=== PATIENT | male | born 1950 | race Caucasian/White ===

== ENCOUNTER 2017-02-07 13:21 | Outpatient (CLI) | payer MEDICARE, BC ==
[2017-02-07] MEDS ORDERED: Sodium Chloride 0.9% 15 ML NEB ONE (18:59)
== END 2017-02-07 13:22 | disposition home or self-care (01) ==
LOC: WCC 13:21
PROVIDERS: ATTEND Family Medicine
DX: T81.89XD Other complications of procedures, not elsewhere classified, subsequent encounter (principal); Z89.411 Acquired absence of right great toe
CPT/HCPCS: 97605; A4218

== ENCOUNTER 2017-02-11 12:45 | Outpatient (CLI) | payer MEDICARE, BC ==
--- NOTE | 2017-02-11 13:35 | PRG ---
DATE OF SERVICE: 02/11/2017 WOUND CARE EVALUATION Mr. Jang is visiting Wound Care. His right great toe amputated through the proximal phalanx, wou nd is inspected. There is some granulation, but not as much as I would like. He did have a preoper ative angiogram with stents placed. His circulation has been optimized. At this point, I would con tinue wound VAC care. He has appointment to see me in the office tomorrow that we can cancel. I w ill see him in the Wound Care in about 10 days. We will call me to view his wound. If the wound is equivocal as far as predicting whether it will heal or not, we will have to observe it.
[2017-02-11] MEDS ORDERED: Sodium Chloride 0.9% 15 ML NEB ONE (18:46)
== END 2017-02-11 12:46 | disposition home or self-care (01) ==
LOC: WCC 12:45
PROVIDERS: ATTEND Family Medicine
DX: T81.89XD Other complications of procedures, not elsewhere classified, subsequent encounter (principal); Z89.411 Acquired absence of right great toe
CPT/HCPCS: 97605; A4218

== ENCOUNTER 2017-02-14 12:54 | Outpatient (CLI) | payer MEDICARE, BC ==
[~2017-02-14 12:54] MED LIST: Sodium Chloride 0.9% 15 ML NEB ONE
== END 2017-02-14 12:55 | disposition home or self-care (01) ==
LOC: WCC 12:54
PROVIDERS: ATTEND Family Medicine
DX: T81.89XD Other complications of procedures, not elsewhere classified, subsequent encounter (principal)
CPT/HCPCS: 97606; A4218

== ENCOUNTER 2017-02-18 12:54 | Outpatient (CLI) | payer MEDICARE, BC ==
--- NOTE | 2017-02-18 14:38 | PRG ---
DATE OF SERVICE: 02/18/2017 HISTORY: Mr. Chencho Jang is a very pleasant 66-year-old gentleman accompanied by his rikki dugan presents to the Wound Center for evaluation of a wound of the right foot subsequent to amputation of the right great toe through the proximal phalanx on 01/27/[address] Romulo Brown. [facility], the wound was left open for healing by secondary intention. Also at the time of surgery, the pat ient underwent wound VAC placement for the wound of the right great toe. Upon discharge from [facility], the patient was referred to the Wound Center for assistance with dressi ng changes of the wound VAC. The patient was discharged to home on Augmentin 500 mg p.o. b.i.d. x7 days. PHYSICAL EXAMINATION: VITAL SIGNS: Temperature 98.3, pulse 72, respirations 18, blood pressure 162/81, Accu-Chek 149. EXTREMITIES: A wound of the right great toe is present which measures approximately 2.8 x 1.4 cm. The dimensions of the wound at the time of the patient's visit on 02/04/2017 were approximately 2.9 x 3.4 cm. Nonviable tissue present within the wound margins was debrided with an excisional full-th ickness debridement with the use of a curette. No purulent drainage is associated with the wound. The wound is granulating. No cellulitis of the right great toe is appreciated. No maceration of th e skin of the periwound is noted. A dorsalis pedis pulse is palpable on the right. No significant edema of the right foot or right great toe is present on exam today. ASSESSMENT AND PLAN: 1. Wound of right great toe subsequent to amputation of the right great toe through the proximal ph alanx on 01/27/[address] Romulo Brown. The wound was left open for healing by secondary intenti on at the time of surgery. Also at the time of surgery, the patient underwent wound VAC placement. Negative pressure therapy will be continued with dressing changes of the wound VAC 2 times per week here in the Wound Center. The patient will be seen by Dr. Brown in 1 week. I will see Mr. Rosette nunez again in two weeks. 2. Diabetes mellitus. The patient's Accu-Chek in clinic today is 149. The patient has been remind ed that for optimal wound healing, his blood glucoses should remain below 150. 3. Hypertension. 4. Obstructive sleep apnea. 5. History of bladder carcinoma. 6. Peripheral vascular disease.
[2017-02-18] MEDS ORDERED: Sodium Chloride 0.9% 15 ML NEB ONE (17:00)
== END 2017-02-18 12:55 | disposition home or self-care (01) ==
LOC: WCC 12:54
PROVIDERS: ATTEND Family Medicine
DX: T81.89XD Other complications of procedures, not elsewhere classified, subsequent encounter (principal); E11.9 Type 2 diabetes mellitus without complications; G47.33 Obstructive sleep apnea (adult) (pediatric); I73.9 Peripheral vascular disease, unspecified; I10 Essential (primary) hypertension; Z85.51 Personal history of malignant neoplasm of bladder
CPT/HCPCS: 11042; 97139; G0463; 99204; A4218

== ENCOUNTER 2017-02-21 13:04 | Outpatient (CLI) | payer MEDICARE, BC ==
[2017-02-21] MEDS ORDERED: Sodium Chloride 0.9% 15 ML NEB ONE (16:21)
== END 2017-02-21 13:05 | disposition home or self-care (01) ==
LOC: WCC 13:04
PROVIDERS: ATTEND Family Medicine
DX: T81.89XD Other complications of procedures, not elsewhere classified, subsequent encounter (principal); Z89.411 Acquired absence of right great toe
CPT/HCPCS: 97605; A4218

== ENCOUNTER 2017-02-25 12:44 | Outpatient (CLI) | payer MEDICARE, BC ==
--- NOTE | 2017-02-25 13:54 | PRG ---
DATE OF SERVICE: 02/25/2017 Mr. Jang is seen in Wound Care along with the wound care team, outpatient [facility]. His ri ght first toe amputated mid toe healing secondarily with a wound VAC. He is doing well. They are u sing Promogran and a wound VAC. I would continue the wound VAC until granulation fills this in. It is approximately 2 cm deep, but overall is healing, looks healthy. There is some redness about the wound probably secondary to wound VAC adhesive. No evidence of infection. Continue wound care, I will look at the wound again in a week and a half to 2 weeks.
[2017-02-25] MEDS ORDERED: Sodium Chloride 0.9% 15 ML NEB ONE (14:49)
== END 2017-02-25 12:45 | disposition home or self-care (01) ==
LOC: WCC 12:44
PROVIDERS: ATTEND Family Medicine
DX: T81.89XD Other complications of procedures, not elsewhere classified, subsequent encounter (principal); Z89.411 Acquired absence of right great toe
CPT/HCPCS: 97605; A4218

== ENCOUNTER 2017-02-28 13:12 | Outpatient (CLI) | payer MEDICARE, BC | END 2017-02-28 13:13 | disposition home or self-care (01) | LOC: WCC 13:12 | PROVIDERS: ATTEND Family Medicine | DX: T81.89XD Other complications of procedures, not elsewhere classified, subsequent encounter (principal); Z89.411 Acquired absence of right great toe | CPT/HCPCS: 97605 ==

== ENCOUNTER 2017-03-04 13:16 | Outpatient (CLI) | payer MEDICARE, BC ==
--- NOTE | 2017-03-05 09:12 | PRG ---
DATE OF SERVICE: 03/04/2017 HISTORY: Mr. Chencho Jang is a very pleasant 66-year-old gentleman, accompanied by his , who presents to the Wound Center for evaluation of a wound of the right foot subsequent to amputati on of the right great toe through the proximal phalanx on 01/27/[address] Romulo Brown. At [facility], the wound was left open for healing by secondary intention. Also, at the time of surgery, the patient underwent wound VAC placement for the wound of the right great toe. Upon discharge from [facility], the patient was referred to the Wound Center for assistance with cory ssing changes of the wound VAC. The patient was discharged to home on Augmentin 500 mg p.o. b.i.d. x7 days. PHYSICAL EXAMINATION: VITAL SIGNS: Temperature 98.1, pulse 69, respirations 18, blood pressure 147/78. Accu-Chek 179. EXTREMITIES: A wound of the right great toe is present, which measures approximately 1.3 x 0.4 cm. The dimensions of the wound, at the time of the patient's visit on 02/18/2017, were approximately 2 .8 x 1.4 cm. The depth of the wound today is approximately 1 cm. The wound is granulating. Nonvia ble tissue present within the wound margins was debrided with an excisional full-thickness debrideme nt. No purulent drainage is associated with the wound. No cellulitis of the right great toe is mile reciated. No maceration of the skin of the periwound is noted. A dorsalis pedis pulse is palpable on the right. No significant edema of the right foot or right great toe is present on exam today. ASSESSMENT AND PLAN: 1. Wound of right great toe subsequent to amputation of the right great toe through the proximal ph alanx on 01/27/[address] Romulo Brown. The wound was left open for healing by secondary intenti on at the time of surgery. Also, at the time of surgery, the patient underwent wound VAC placement. Negative pressure therapy will be continued with dressing changes of the wound VAC 2 times per adwoa rodas in the Wound Center. The patient will be seen by Dr. Brown in 1 week. I will see Mr. Aftab shaw again in two weeks. 2. Diabetes mellitus. The patient's Accu-Chek in clinic today is 179. The patient has been remind ed that for optimal wound healing, his blood glucoses should remain below 150. 3. Hypertension. 4. Obstructive sleep apnea. 5. History of bladder carcinoma. 6. Peripheral vascular disease.
== END 2017-03-04 13:17 | disposition home or self-care (01) ==
LOC: WCC 13:16
PROVIDERS: ATTEND Family Medicine
DX: T81.89XD Other complications of procedures, not elsewhere classified, subsequent encounter (principal); E11.9 Type 2 diabetes mellitus without complications; I10 Essential (primary) hypertension; G47.33 Obstructive sleep apnea (adult) (pediatric); I73.9 Peripheral vascular disease, unspecified; Z85.51 Personal history of malignant neoplasm of bladder; Z89.411 Acquired absence of right great toe
CPT/HCPCS: 11042

== ENCOUNTER 2017-03-07 11:23 | Outpatient (CLI) | payer MEDICARE, BC ==
[2017-03-07] MEDS ORDERED: Sodium Chloride 0.9% 15 ML NEB ONE (16:55)
== END 2017-03-07 11:24 | disposition home or self-care (01) ==
LOC: WCC 11:23
PROVIDERS: ATTEND Family Medicine
DX: T81.89XD Other complications of procedures, not elsewhere classified, subsequent encounter (principal)
CPT/HCPCS: 97605; A4218

== ENCOUNTER 2017-03-11 11:30 | Outpatient (CLI) | payer MEDICARE, BC | END 2017-03-11 11:31 | disposition home or self-care (01) | LOC: WCC 11:30 | PROVIDERS: ATTEND Family Medicine | DX: T87.89 Other complications of amputation stump (principal); Z89.411 Acquired absence of right great toe | CPT/HCPCS: 97606 ==

== ENCOUNTER 2017-03-14 13:15 | Outpatient (CLI) | payer MEDICARE, BC ==
--- NOTE | 2017-03-14 14:49 | PRG ---
DATE OF SERVICE: 03/14/2017 HISTORY: Mr. Chencho Jang is a very pleasant 66-year-old gentleman accompanied by his who presents to the Wound Center for evaluation of a wound of the right foot subsequent to amputati on of the right great toe through the proximal phalanx on 01/27/[address] Romulo Brown. At [facility], the wound was left open for healing by secondary intention. Also at the time of surgery, the p faviola underwent wound VAC placement for the wound of the right great toe. Upon discharge from [facility], the patient was referred to the Wound Center for assistance with dres sing changes of the wound VAC. The patient was discharged home on Augmentin 500 mg p.o. b.i.d. x7 d ays. PHYSICAL EXAMINATION: VITAL SIGNS: Temperature 97.6, pulse 69, respirations 19, and blood pressure 121/71. Accu-Chek 181 . EXTREMITIES: A wound of the right great toe is present which measures approximately 1.6 x 0.4 cm. The dimensions of the wound at the time of the patient's visit on 03/04/2017 were approximately 1.3 x 0.4 cm. The wound is granulating. Nonviable tissue present within the wound margins was debrided with an excisional full-thickness debridement with the use of a curette. No purulent drainage is a ssociated with the wound. No cellulitis of the right great toe is appreciated. No maceration of th e skin of the periwound is noted. A dorsalis pedis pulse is palpable on the right. No significant edema of the right foot or right great toe is present on exam today. ASSESSMENT AND PLAN: 1. Wound of right great toe subsequent to amputation of the right great toe through the proximal ph alanx on 01/27/[address] Romulo Brown. The wound was left open for healing by secondary intenti on at the time of surgery. Also at the time of surgery, the patient underwent wound VAC placement. The patient has been receiving dressing changes of the wound VAC 2 times per week here in the Wound Center. Negative pressure therapy will be discontinued today. Dressing changes of Aquacel AG pack ing strips, 4 x 4s and Kerlix will be initiated today. These dressing changes are to be performed o n a daily basis after cleansing and irrigation. The patient will be seen by Dr. Brown in 1 week. I will see Mr. Jang again in two weeks. 2. Diabetes mellitus. The patient's Accu-Chek in clinic today is 181. The patient has been remind ed that for optimal wound healing, his blood glucoses should remain below 150. 3. Hypertension. 4. Obstructive sleep apnea. 5. History of bladder carcinoma. 6. Peripheral vascular disease.
== END 2017-03-14 13:16 | disposition home or self-care (01) ==
LOC: WCC 13:15
PROVIDERS: ATTEND Family Medicine
DX: T81.89XD Other complications of procedures, not elsewhere classified, subsequent encounter (principal); E11.9 Type 2 diabetes mellitus without complications; G47.33 Obstructive sleep apnea (adult) (pediatric); I73.9 Peripheral vascular disease, unspecified; I10 Essential (primary) hypertension; Z85.51 Personal history of malignant neoplasm of bladder
CPT/HCPCS: 11042

== ENCOUNTER 2017-03-21 13:18 | Outpatient (CLI) | payer MEDICARE, BC ==
[2017-03-21] MEDS ORDERED: Sodium Chloride 0.9% 15 ML NEB ONE (17:55)
[2017-03-21] MEDS ORDERED: Lidocaine 2% Jelly 5 ML TUBE ONE (17:55)
--- NOTE | 2017-03-21 18:23 | PRG ---
DATE OF SERVICE: 03/21/2017 HISTORY: Mr. Chencho Jang is a very pleasant 66-year-old gentleman, accompanied by his , who presents to the Wound Center for evaluation of a wound of the right foot subsequent to amputation of the right great toe through the proximal phalanx on 01/27/[address] Romulo Brown. At surgery, the wound was left open for healing by secondary intention. Also at the time of surgery, the patient underwent wound VAC placement for the wound of the right great toe. Upon discharge from [facility], the patient was referred to the Wound Center for assistance with dressing changes of the wound VAC. The patient was discharged to home on Augmentin 500 mg p.o. b.i.d. x7 days. PHYSICAL EXAMINATION: VITAL SIGNS: Temperature 97.9, pulse 69, respirations 19, blood pressure 134/ 79. Accu-Chek 153. EXTREMITIES: A wound of the right great toe is present which measures approximately 1.0 x 0.2 cm. The dimensions of the wound at the time of the patient's visit on 03/14/2017 were approximately 1.6 x 0.4 cm. The wound is granulating. Nonviable tissue present within the wound margins was debrided with an excisional full-thickness debridement with the use of a curet. No purulent drainage is associated with the wound. No cellulitis of the right great toe is appreciated. No maceration of the skin of the periwound is noted. Edema of the right great toe is present on exam today. ASSESSMENT AND PLAN: 1. Wound of right great toe subsequent to amputation of the right great toe through the proximal phalanx on 01/27/[address] Romulo Brown. The wound was left open for healing by secondary intention at the time of surgery. Also at the time of surgery, the patient underwent wound VAC placement. The patient has completed a course of negative pressure therapy. Dressing changes of Aquacel AG packing strips, 4x4s, and Kerlix will be continued on a daily basis or alternatively three times per week after cleansing and irrigation with the assistance of the patient's . The patient will be seen by Dr. Brown in 1 week. I will see Mr. Jang again in 2 weeks. 2. Diabetes mellitus. The patient's Accu-Chek in clinic today is 153. The patient has been reminded that for optimal wound healing, his blood glucoses should remain below 150. 3. Hypertension. 4. Obstructive sleep apnea. 5. History of bladder carcinoma. 6. Peripheral vascular disease. MTDD
== END 2017-03-21 13:19 | disposition home or self-care (01) ==
LOC: WCC 13:18
PROVIDERS: ATTEND Family Medicine
DX: T81.89XD Other complications of procedures, not elsewhere classified, subsequent encounter (principal); Z89.411 Acquired absence of right great toe; E11.9 Type 2 diabetes mellitus without complications; I10 Essential (primary) hypertension; G47.33 Obstructive sleep apnea (adult) (pediatric); I73.9 Peripheral vascular disease, unspecified
CPT/HCPCS: 11042; A4218

== ENCOUNTER 2017-04-03 13:17 | Outpatient (CLI) | payer MEDICARE, BC ==
[~2017-04-03 13:17] MED LIST changes: +Lidocaine 2% Jelly 5 ML TUBE ONE
--- NOTE | 2017-04-03 14:59 | PRG ---
DATE OF SERVICE: 04/03/2017 HISTORY: Mr. Chencho Jang is a very pleasant 66-year-old gentleman accompanied by his , who presents to the Wound Center for evaluation of a wound of the right foot subsequent to amputatio n of the right great toe through the proximal phalanx on 01/27/[address] Romulo Brown. [facility], the wound was left open for healing by secondary intention. Also at the time of surgery, the shaan ent underwent wound VAC placement for the wound of the right great toe. Upon discharge from [facility], the patient was referred to the Wound Center for assistance with dressing changes of the wound VAC. The patient was discharged to home on Augmentin 500 mg p.o. b.i.d. x7 days . PHYSICAL EXAMINATION: VITAL SIGNS: Temperature 98.3, pulse 75, respirations 18, blood pressure 136/78. Accu-Chek 156. EXTREMITIES: A wound of the right great toe is present, which measures approximately 1.2 x 0.3 cm. The dimensions of the wound at the time of the patient's visit on 03/21/2017 were approximately 1.0 x 0.2 cm. The wound is granulating. Nonviable tissue present within the wound margins was debrided w ith an excisional full-thickness debridement with the use of a curette. No purulent drainage is asso ciated with the wound. No cellulitis of the right great toe is appreciated. No maceration of the sk in of the periwound is noted. Less edema of the right great toe is present on exam today than at the time of the patient's last visit. ASSESSMENT AND PLAN: 1. Wound of right great toe subsequent to amputation of the right great toe through the proximal pha lanx on 01/27/[address] Romulo Brown. The wound was left open for healing by secondary intention at the time of surgery. Also at the time of surgery, the patient underwent wound VAC placement. Th e patient has completed a course of negative pressure therapy. Dressing changes of Aquacel AG packin g strips and gauze or bordered gauze will be continued on a daily basis or alternatively 3 times per week after cleansing and irrigation with the assistance of the patient's . I will see Mr. Rosette nunez again in 2 weeks. 2. Diabetes mellitus. The patient's Accu-Chek in clinic today is 156. The patient has been reminde d that for optimal wound healing, his blood glucoses should remain below 150. 3. Hypertension. 4. Obstructive sleep apnea. 5. History of bladder carcinoma. 6. Peripheral vascular disease.
== END 2017-04-03 13:18 | disposition home or self-care (01) ==
LOC: WCC 13:17
PROVIDERS: ATTEND Family Medicine
DX: T81.89XD Other complications of procedures, not elsewhere classified, subsequent encounter (principal); E11.9 Type 2 diabetes mellitus without complications; I10 Essential (primary) hypertension; G47.33 Obstructive sleep apnea (adult) (pediatric); I73.9 Peripheral vascular disease, unspecified; Z89.411 Acquired absence of right great toe
CPT/HCPCS: 11042; A4218

== ENCOUNTER 2017-04-17 11:05 | Outpatient (CLI) | payer MEDICARE, BC ==
--- NOTE | 2017-04-17 12:16 | PRG ---
DATE OF SERVICE: 04/17/2017 HISTORY: Mr. Chencho Jang is a very pleasant 66-year-old gentleman accompanied by his who presents to the Wound Center for evaluation of a wound of the right foot subsequent to amputation of the right great toe through the proximal phalanx on 01/27/[address] Romulo Brown. At surgery , the wound was left open for healing by secondary intention. Also at the time of surgery, the patie nt underwent wound VAC placement for the wound of the right great toe. Upon discharge from [facility], the patient was referred to the Wound Center for assistance with dressing c hanges of the wound VAC. The patient was discharged to home on Augmentin 500 mg p.o. b.i.d. x7 days. PHYSICAL EXAMINATION: VITAL SIGNS: Temperature 97.9, pulse 71, respirations 18, blood pressure 122/63, Accu-Chek 148. EXTREMITIES: A wound of the right great toe is still present. The wound is granulating. Nonviable tissue present within the wound margins was debrided with an excisional full-thickness debridement wi th the use of a curette. No purulent drainage is associated with the wound. No cellulitis of the ri ght great toe is appreciated. No maceration of the skin of the periwound is noted. Again, less bekah a of the right great toe is present on exam today than at the time of the patient's last visit. ASSESSMENT AND PLAN: 1. Wound of right great toe subsequent to amputation of the right great toe through the proximal pha lanx on 01/27/[address] Romulo Brown. The wound was left open for healing by secondary intention at the time of surgery. Also at the time of surgery, the patient underwent wound VAC placement. Th e patient has completed a course of negative pressure therapy, dressing changes of Aquacel AG, packin g strips and gauze or bordered gauze will be continued on a daily basis or alternatively three times per week after cleansing and irrigation with the assistance of the patient's . I will see Mr. Mariela mathis again in one week. At this time, he will also be seen by the harvest worker. 2. Diabetes mellitus. The patient's Accu-Chek in clinic today is 148. The patient has been reminde d that for optimal wound healing, his blood glucoses should remain below 150. 3. Hypertension. 4. Obstructive sleep apnea. 5. History of bladder carcinoma. 6. Peripheral vascular disease.
== END 2017-04-17 11:06 | disposition home or self-care (01) ==
LOC: WCC 11:05
PROVIDERS: ATTEND Family Medicine
DX: T81.89XD Other complications of procedures, not elsewhere classified, subsequent encounter (principal); E11.9 Type 2 diabetes mellitus without complications; G47.33 Obstructive sleep apnea (adult) (pediatric); I73.9 Peripheral vascular disease, unspecified; I10 Essential (primary) hypertension; Z85.51 Personal history of malignant neoplasm of bladder
CPT/HCPCS: 11042

== ENCOUNTER 2017-04-24 10:37 | Outpatient (CLI) | payer MEDICARE, BC ==
--- NOTE | 2017-04-24 14:01 | PRG ---
DATE OF SERVICE: 04/24/2017 HISTORY: Mr. Chencho Jang is a very pleasant 66-year-old gentleman accompanied by his who presents to the Wound Center for evaluation of a wound of the right foot subsequent to amputation of the right great toe through the proximal phalanx on 01/27/[address] Romulo Brown. At surgery , the wound was left open for healing by secondary intention. Also at the time of surgery, the patie nt underwent wound VAC placement for the wound of the right great toe. Upon discharge from [facility], the patient was referred to the Wound Center for assistance with dressing c hanges of the wound VAC. The patient was discharged to home on Augmentin 500 mg p.o. b.i.d. x7 days. PHYSICAL EXAMINATION: VITAL SIGNS: Temperature 98.7, pulse 69, respirations 16, blood pressure 141/70. EXTREMITIES: A wound of the right great toe is still present. The wound is granulating. Nonviable tissue present within the wound margins was debrided with an excisional full-thickness debridement. No purulent drainage is associated with the wound. No cellulitis of the right great toe is appreciat ed. No maceration of the skin of the periwound is noted. No significant edema of the right great to e is present on exam today. ASSESSMENT AND PLAN: 1. Wound of right great toe subsequent to amputation of the right great toe through the proximal pha lanx on 01/27/[address] Romulo Brown. The wound was left open for healing by secondary intention at the time of surgery. Also at the time of surgery, the patient underwent wound VAC placement. e patient has completed a course of negative pressure therapy. Dressing changes of Aquacel AG, packi ng strips and gauze or bordered gauze will be continued on a daily basis or alternatively 3 times per week after cleansing and irrigation with the assistance of the patient's . I will see Mr. Aftab shaw again in 2 weeks. At this time, he will also be seen by the manager consumer. The patient has been see n by the manager consumer today for fitting with diabetic shoes with inserts. 2. Diabetes mellitus. Accu-Cheks will be obtained at the time of the patient's clinic visits. The patient has been reminded that for optimal wound healing his blood glucoses should remain below 150. 3. Hypertension. 4. Obstructive sleep apnea. 5. History of bladder carcinoma. 6. Peripheral vascular disease.
== END 2017-04-24 10:38 | disposition home or self-care (01) ==
LOC: WCC 10:37
PROVIDERS: ATTEND Family Medicine
DX: T81.89XD Other complications of procedures, not elsewhere classified, subsequent encounter (principal); E11.9 Type 2 diabetes mellitus without complications; I10 Essential (primary) hypertension; G47.33 Obstructive sleep apnea (adult) (pediatric); I73.9 Peripheral vascular disease, unspecified; Z89.411 Acquired absence of right great toe
CPT/HCPCS: 11042

== ENCOUNTER 2017-05-09 10:05 | Outpatient (CLI) | payer MEDICARE, BC ==
--- NOTE | 2017-05-09 11:36 | PRG ---
DATE OF SERVICE: 05/09/2017 HISTORY: Mr. Chencho Jang is a very pleasant 66-year-old gentleman accompanied by his , who presents to the Wound Center for evaluation of a wound of the right foot subsequent to amputatio n of the right great toe through the proximal phalanx on 01/27/[address] Romulo Brown. At [facility], the wound was left open for healing by secondary intention. Also at the time of surgery, the shaan ent underwent wound VAC placement for the wound of the right great toe. Upon discharge from [facility], the patient was referred to the Wound Center for assistance with dressing changes of the wound VAC. The patient was discharged to home on Augmentin 500 mg p.o. b.i.d. x7 days . PHYSICAL EXAMINATION: VITAL SIGNS: Temperature 97.9, pulse 65, respirations 18, blood pressure 141/80. Accu-Chek 144. EXTREMITIES: The wound of the right great toe has healed completely. No significant edema of the ri ght great toe is present on exam today. ASSESSMENT AND PLAN: 1. Wound of right great toe subsequent to amputation of the right great toe through the proximal pha lanx on 01/27/[address] Romulo Brown. The wound was left open for healing by secondary intention at the time of surgery. Also at the time of surgery, the patient underwent wound VAC placement. Th e patient has completed a course of negative pressure therapy. Subsequently, the wound was treated w ith dressing changes of Aquacel AG. As stated above, the wound has healed completely and Mr. Jang will be discharged from clinic today with followup on a p.r.n. basis. The patient states he will be receiving his diabetic shoes with inserts in early 2017. 2. Diabetes mellitus. The patient's Accu-Chek in clinic today is 144. 3. Hypertension. 4. Obstructive sleep apnea. 5. History of bladder carcinoma. 6. Peripheral vascular disease.
== END 2017-05-09 10:06 | disposition home or self-care (01) ==
LOC: WCC 10:05
PROVIDERS: ATTEND Family Medicine
DX: T81.89XD Other complications of procedures, not elsewhere classified, subsequent encounter (principal); E11.621 Type 2 diabetes mellitus with foot ulcer; I10 Essential (primary) hypertension; I73.9 Peripheral vascular disease, unspecified; G47.33 Obstructive sleep apnea (adult) (pediatric); Z85.51 Personal history of malignant neoplasm of bladder

== ENCOUNTER 2017-06-05 08:00 | Outpatient (CLI) | payer MEDICARE, BC | END 2017-06-05 08:01 | disposition home or self-care (01) | LOC: BICMRI 08:00 | PROVIDERS: ATTEND Family Medicine | DX: M51.16 Intervertebral disc disorders with radiculopathy, lumbar region (principal) | CPT/HCPCS: 72148 ==

== ENCOUNTER 2017-07-17 09:38 | Outpatient (CLI) | payer MEDICARE, BC ==
[2017-07-17 11:00] LABS: Anion Gap 14 mmol/L (10-20); BUN (Urea Nitrogen) 15 mg/dL (8.4-25.7); Calc. Creatinine Clearance 0 mL/min (70-130); Calcium 9.4 mg/dL (7.8-10.44); Carbon Dioxide 23 mmol/L (23-31); Chloride 104 mmol/L (98-107); Estimated GFR-MDRD 68; Glucose 314 mg/dL (80-115); Sodium 137 mmol/L (136-145)
== END 2017-07-17 09:39 | disposition home or self-care (01) ==
LOC: LABBT 09:38
PROVIDERS: ATTEND Neurological Surgery
DX: Z01.812 Encounter for preprocedural laboratory examination (principal); M51.16 Intervertebral disc disorders with radiculopathy, lumbar region
CPT/HCPCS: 80048

== ENCOUNTER → 2017-07-22 | Day surgery (SDC) | payer MEDICARE, BC ==
[2017-07-17 09:54] VITALS: BMI 39.3
[~2017-07-22] MED LIST changes: +Bupivacaine HCl 0.5%/Epinephrine 1:200,000/PF 30 ml Vial ONE; +CEFAZOLIN/Water 2 GM/20 ML SYRINGE ONE; +Famotidine/PF 20 mg/2ml Vial ONE; +Fentanyl 250 MCG/5 ML VIAL ONE; +Glycopyrrolate 0.2 MG/ML 5 ML SYRINGE ONE; +HYDROmorphone 0.5 MG/0.5 ML SYRINGE ONE; +Lidocaine 1% PF 5 ML VIAL ONE; -Lidocaine 2% Jelly 5 ML TUBE ONE; +Ondansetron HCl/PF 4 MG/2 ML Vial ONE; +PHENYLEPHRINE-NS 100 MCG/ML 10 ML SYRINGE ONE; +Propofol 200 MG/20 ML VIAL ONE; -Sodium Chloride 0.9% 15 ML NEB ONE; +Thrombin 5000 UNITS/5 ML VIAL ONE; +tiZANidine HCl 4 MG TAB ONE
--- NOTE | 2017-07-22 01:07 | HP ---
HISTORY OF PRESENT ILLNESS: Mr. Jang is a very pleasant 66-year-old man and father of previous pa tient of ours Reji Jang who presents for evaluation of roughly a year and a half worth of lower back pain around 6 months ago and found significantly to include neurogenic claudication symptoms. He has an MRI from [facility] last month that reveals large superior migrating disk extrusion at L2-L3 that causes severe compression of the thecal sac and compromise around 50% to 60% of the centr al canal. This is very likely culprit. He has had 2 series of injections with Dr. Robbins, first whic h was done lower at L5 which resulted in 4 days of relief and then more recently at the site of his d isk herniation resulted in about 3 weeks of relief. His pain started to come back now. He is like t o pursue surgery if possible. PAST MEDICAL HISTORY: Significant for diabetes, hypertension, bladder cancer, back and leg problems. CURRENT MEDICATIONS: Glyburide, metformin, lisinopril, Lipitor, Invokana, metoprolol, Lantus, Nexium , aspirin, gabapentin, tramadol. ALLERGIES: No known drug allergies. PAST SURGICAL HISTORY: Unspecified left foot surgery, cancer resection of the bladder, left knee rep lacement, vascular stent in the right leg, amputation of the right great toe. PHYSICAL EXAMINATION: The patient is alert and oriented x3. Gait is antalgic. Straight leg raise i s positive on the left lower extremity. He has no weakness on the examination of bilateral lower ext remities. ASSESSMENT: Lumbar disk herniation and neurogenic claudication. PLAN: Dr. Dill met with the patient, reviewed imaging and advocated for an L2-L3 diskectomy. He ex plained to the patient the risks, benefits, and alternatives to the procedure. The patient expressed understanding and would like to move forward with surgery as discussed. I do believe the patient is mentally competent and capable of making medical decisions for himself. We will move forward with loc garza as planned.
--- NOTE | 2017-07-22 12:43 | OP ---
DATE OF PROCEDURE: 07/22/2017 SURGEON: Harris Dill M.D. LENDING [employer]IVITIES SUPERVISOR: Mulugeta Culp PA-C INDICATION: Pain. DIAGNOSIS: Lumbar radiculopathy. PROCEDURES: Right L2-L3 hemilaminectomy, diskectomy. ANESTHESIA: General. TECHNIQUE: The patient was brought into the operating room and placed under general anesthesia. He was flipped from a supine to a prone position on the operating room table. A linear incision was leilani nned over the L2-L3 segment. After prepping and draping and after an appropriate operative pause, th e incision was created. The soft tissues were swept right of midline. A self-retaining retractor wa s placed in the wound for optimal exposure. After confirming the appropriate levels with C-arm fluor oscopy, a high-speed cutting drill bit as well as 2, 3 and 4-mm Kerrison was used to perform a dahiana ctomy on the right side at L2. The descending L3 nerve root was identified and mobilized medially. There was a superiorly migrated disk fragment which was identified and this was carefully removed. T he wound was then irrigated. Hemostasis was maintained throughout. Two small Gelfoam pledgets were placed in the lateral recess to control bleeding. The wound was then closed in anatomic layers and a pressure dressing was applied. There were no known procedural complications.
== END ==
LOC: SDC 07:43
PROVIDERS: ATTEND Neurological Surgery
PROC: 0ST20ZZ Resection of Lumbar Vertebral Disc, Open Approach (ICD-10-PCS; principal; 2017-07-22)
PROC: 01NB0ZZ Release Lumbar Nerve, Open Approach (ICD-10-PCS; 2017-07-22)
DX: M54.16 Radiculopathy, lumbar region (principal); E11.9 Type 2 diabetes mellitus without complications; I10 Essential (primary) hypertension; Z79.82 Long term (current) use of aspirin; Z79.4 Long term (current) use of insulin; Z79.899 Other long term (current) drug therapy
CPT/HCPCS: 36416; 96374; J0670; J1170; J2001; J2405; J2704; J3010; S0028

== ENCOUNTER 2018-07-23 13:32 | Outpatient (CLI) | payer MEDICARE, BC ==
[~2018-07-23 13:32] MED LIST changes: -Bupivacaine HCl 0.5%/Epinephrine 1:200,000/PF 30 ml Vial ONE; -CEFAZOLIN/Water 2 GM/20 ML SYRINGE ONE; -Famotidine/PF 20 mg/2ml Vial ONE; -Fentanyl 250 MCG/5 ML VIAL ONE; -Glycopyrrolate 0.2 MG/ML 5 ML SYRINGE ONE; -HYDROmorphone 0.5 MG/0.5 ML SYRINGE ONE; +Iopamidol 370 76% 100 ML VIAL ONE; -Lidocaine 1% PF 5 ML VIAL ONE; -Ondansetron HCl/PF 4 MG/2 ML Vial ONE; -PHENYLEPHRINE-NS 100 MCG/ML 10 ML SYRINGE ONE; -Propofol 200 MG/20 ML VIAL ONE; -Thrombin 5000 UNITS/5 ML VIAL ONE; -tiZANidine HCl 4 MG TAB ONE
[2018-07-23 14:05] LABS: Estimated GFR-MDRD - POC Greater than 90
--- NOTE | 2018-07-23 16:09 | CT ---
CT ANGIOGRAM ABDOMEN AND PELVIS WITH IV CONTRAST AND 3D RECONSTRUCTIONS CT ANGIOGRAM BILATERAL LOWER EXTREMITIES WITH RUNOFF TO THE FEET WITH IV CONTRAST AND 3D RECONSTRUCTI ONS: Date: 07/23/18 HISTORY: Lower extremity claudication. Discoloration and pain left lower extremity. COMPARISON: None available. FINDINGS: CT ANGIGORAM ABDOMEN AND PELVIS: There is dependent bibasilar atelectasis. A 2.9 cm left adrenal nodule is present, which cannot be characterized on this postcontrast enhanced exam. Follow-up noncontrast CT abdomen and pelvis is recommended. There is an area of mild enhancement seen in the anterior aspect of the lateral segment of left hepat ic lobe, ;likely related to transient hepatic arterial difference. The spleen, pancreas, right adrenal gland, bilateral kidneys, and urinary bladder demonstrate a gio l CT appearance for arterial phase of imaging. The appendix is visualized and normal in caliber. Degenerative changes are seen in the spine. Vacuum phenomenon is seen in the intervertebral discs of the lower lumbar spine. There is a unilateral right-sided pars defect at L2. Vascular calcifications seen in the visualized coronary arteries. There are scattered vascular calcif ications seen in the abdominal aorta, as well as involving the mesenteric vessels and renal arteries bilaterally. The bilateral common iliac, as well as bilateral internal and external iliac arteries, a ppear patent. The celiac, superior mesenteric, and inferior mesenteric arteries are patent. There are single patent bilateral renal arteries. BILATERAL LOWER EXTREMITY RUNOFF: Right lower extremity: There is a vascular stent within the right common femoral artery which does a ppear patent. This stent is in region of dense bulky atherosclerotic vascular calcification. There is mild narrowing of the proximal right common femoral artery. The origin of the profunda femoral artery is not well visualized and there is probably moderate to se caesar narrowing at the origin of the right profunda femoral artery. Mild atherosclerotic plaque is see n just distal to the common femoral artery stent which extends into the proximal right superficial fe moral artery. It does appear to cross the profunda femoral artery origin. There is atherosclerotic irregularity [id number] the right lower extremity profunda femoral artery wi th multifocal areas of mild degree of narrowing. Dense calcification is seen at the adductor canal, w hich appears to result in a moderate degree of narrowing at the left of the adductor canal. There is a vascular stent within the proximal right popliteal artery which terminates above the level of the k nee joint. There is eccentric vascular calcification seen within the stent with narrowing of the sten t distally, as well as suggestion of narrowing of the lumen of the stent in this region with moderate and possibly severe focal narrowing within the lower portion of the stent within the popliteal arter y. The popliteal artery distal to the level of the stent is patent. There are dense circumferential athe rosclerotic vascular calcifications seen within the tibioperoneal vessels which limits adequate evalu ation of the lumen, likely multifocal areas of narrowing which are difficult to evaluate given the de gree of calcifications. However, enhancement does extend to the level of the ankle, although dorsalis pedis artery and posterior tibial artery at the level of the foot are not well opacified. Left lower extremity: There is mild narrowing of the left common femoral artery related to eccentric prominent atherosclerotic calcifications and mild plaque. The profunda femoral artery is patent. The re is mild atherosclerotic plaque seen involving the proximal left superficial femoral artery with sc attered atherosclerotic plaque seen throughout the left lower extremity superficial femoral artery. T here is dense bulky calcification seen within the left superficial femoral artery at the level of the adductor canal and the lumen in this region is unable to be evaluated. However, just distal to the l evel of this bulky eccentric atherosclerotic calcified plaque, there is either critical stenosis vers us short segment occlusion of the [id number] popliteal artery with additional bulky calcificatio ns present in the [id number] popliteal artery. This limits evaluation of the lumen and additional portions of the popliteal artery just above the level of the knee joint. At the level of the knee, t here is significant artifact from the left knee prosthesis which limits adequate evaluation of the po pliteal artery just above and at the level of the knee joint. Distal left popliteal artery is patent with dense vascular calcifications. As noted within the left lower extremity, there is significant ci rcumferential atherosclerotic calcifications in the tibioperoneal vessels limited evaluation with pro bable multifocal areas of at least mild narrowing. There is opacification of the dorsalis pedis and p osterior tibial arteries at the level of the ankle and foot. IMPRESSION: 1. Left adrenal nodule. This may represent an adrenal adenoma, but is difficult to adequately charac terize on this post enhanced CT exam. A follow-up CT abdomen without IV contrast is recommended. 2. Findings likely related to transient hepatic arterial difference within the left hepatic lobe. 3. Atherosclerotic calcifications and scattered atherosclerotic plaque seen throughout the abdominal aorta and involving the iliac and lower extremity arterial vessels. 4. Dense bulky calcified atherosclerotic plaque within the right common femoral artery with a stent in the right common femoral artery which extends into the proximal right superficial femoral artery w ith at least mild narrowing within the stent, and this narrowing is primarily related to the eccentri c bulky calcification. There is enhancement within the right profunda femoral artery, although the or igin is not well delineated. 5. Atherosclerotic irregularity involving the distal superficial femoral arteries bilaterally with n arrowing at each adductor canal. There is dense calcification seen at the distal left SFA and the lum en in this region cannot be imaged. Just distal to this region, there is either a critical stenosis v ersus short segment occlusion of the left proximal popliteal artery with additional dense vascular ca lcifications in the proximal popliteal artery limiting evaluation of the lumen. There is also moderat e degree of narrowing of the popliteal artery just above the level of the prosthesis within the left knee. Remainder of the popliteal artery just above the knee joint and at the knee joint is obscured. 6. Vascular stent within the proximal right popliteal artery with narrowing of the stent primarily r elated to the bulky calcified atherosclerotic plaque, and there is moderate to severe luminal narrowi ng within the distal portion of the stent within the popliteal artery. 7. Circumferential vascular calcifications involving the tibioperoneal vessels limit adequate evalua tion of the lumen of these vessels and there is probably mild to moderate multifocal areas of narrowi ng present. POS: RYNE
== END 2018-07-23 13:33 | disposition home or self-care (01) ==
LOC: BICCT 13:32
PROVIDERS: ATTEND Thoracic Surgery (Cardiothoracic Vascular Surgery)
DX: I70.213 Atherosclerosis of native arteries of extremities with intermittent claudication, bilateral legs (principal); E27.8 Other specified disorders of adrenal gland; Z95.828 Presence of other vascular implants and grafts
CPT/HCPCS: 75635; 82565; Q9967

== ENCOUNTER 2018-09-01 11:55 | Outpatient (CLI) | payer MEDICARE, BC ==
[2018-09-01 13:07] LABS: Hemoglobin 16.3 g/dL (14.0-18.0); Mean Corpuscular HGB CONC 32.7 g/dL (32.0-36.0); Mean Corpuscular Hemoglobin 31.5 pg (27.0-31.0); Mean Corpuscular Volume 96.3 fL (78.0-98.0); Mean Platelet Volume 6.9 fL (7.4-10.4); Platelet Count 301 thou/uL (130-400); RBC Distribution Width 12.5 % (11.5-14.5); Red Blood Cell (RBC) Count 5.16 mill/uL (4.70-6.10); White Blood Cell (WBC) Count 9.4 thou/uL (4.8-10.8)
[2018-09-01 13:13] LABS: Anion Gap 12 mmol/L (10-20); BUN (Urea Nitrogen) 17 mg/dL (8.4-25.7); Calc. Creatinine Clearance 0 mL/min (70-130); Calcium 9.5 mg/dL (7.8-10.44); Carbon Dioxide 26 mmol/L (23-31); Chloride 104 mmol/L (98-107); Estimated GFR-MDRD 79; Glucose 166 mg/dL (80-115); Potassium 4.3 mmol/L (3.5-5.1); Sodium 138 mmol/L (136-145)
== END 2018-09-01 11:56 | disposition home or self-care (01) ==
LOC: LABBT 11:55
PROVIDERS: ATTEND Thoracic Surgery (Cardiothoracic Vascular Surgery)
DX: Z01.812 Encounter for preprocedural laboratory examination (principal); I70.213 Atherosclerosis of native arteries of extremities with intermittent claudication, bilateral legs
CPT/HCPCS: 80048; 85027

== ENCOUNTER 2018-09-02 09:00 | Day surgery (SDC) | payer MEDICARE, BC ==
[2018-09-01 12:19] VITALS: BMI 38.2
[2018-09-02] MEDS ORDERED: Iopamidol 370 76% 100 ML VIAL ONE (09:53)
[2018-09-02] MEDS ORDERED: Midazolam HCl 2 mg/2 ml Vial ONE (12:48)
[2018-09-02] MEDS ORDERED: Fentanyl 100 MCG/2 ML VIAL ONE (12:48)
[2018-09-02] MEDS ORDERED: Heparin 10,000 UNITS/1 ML VIAL ONE ×2 (13:47→14:09)
[2018-09-02] MEDS ORDERED: Clopidogrel Bisulfate 300 MG TAB ONE (14:09)
[2018-09-02] MEDS ORDERED: Protamine Sulfate 50 MG/5 ML VIAL ONE (14:24)
--- NOTE | 2018-09-02 15:09 | OP ---
DATE OF PROCEDURE: 09/02/2018 PREOPERATIVE DIAGNOSIS: Rest pain, left leg. PROCEDURES PERFORMED: Aortogram bilateral lower extremity runoff with balloon angioplasty, distal SFA and proximal popliteal artery and then placement of 2 Innova stents with the more distal stent being a 7 x 80 and then a proximal overlapping 8 x 60 posted with a 6 mm balloon. Fluoroscopy 26.3 minutes. Contrast 55 mL. DESCRIPTION OF PROCEDURE: After adequate prepping and draping, 1% lidocaine was used to infiltrate the right groin and with fluoroscopy, the previously identified common femoral artery stent was identified and ultrasound-guided puncture of the common femoral artery proximal to that stent was performed. A 5-Chinese dilator and sheath were passed. Contra catheter was used to obtain aortogram and iliofemoral runoff. Contra catheter would not pass over the bifurcation and with the assistance of a soft angled Glidewire and a glide catheter. The glide catheter was advanced into the superficial femoral artery and runoff of the left leg obtained. Following this, attempts to place a Magic Torque wire were unsuccessful and a stiff angled Glidewire was then placed and a 6-Chinese destination sheath was advanced over the bifurcation after heparinization and monitoring of ACT levels. Following this, a front runner was used to cross the complete occlusion and a 0.035 Surprise catheter eventually tracked over a Glidewire that had replaced the front runner. Contrast injection showed good flow. Following this, a 5 x 100 balloon was used to pre-dilate the lesion and completion angiography showed a fair result. It was elected at that time to place stents and the 7 x 80 was placed and then the 8 x 60. Following this, a 6 mm balloon was used to inflate the entire area with a good result. Runoff was preserved with a stenosis present in the origin of the posterior tibial artery, but 3-vessel runoff was present. There was no residual stenosis at the site of occlusion to speak of and the popliteal artery stenosis was minimal. The proximal SFA was normal as were the bilateral common external, and common femoral arteries. On the right side, the SFA was patent with a popliteal stent that was imaged and widely patent with 3-vessel runoff. The patient tolerated the procedure well. Job ID: [id number]
== END 2018-09-02 19:35 | disposition home or self-care (01) ==
LOC: CCL 09:00
PROVIDERS: ATTEND Thoracic Surgery (Cardiothoracic Vascular Surgery)
PROC: 047N3DZ Dilation of Left Popliteal Artery with Intraluminal Device, Percutaneous Approach (ICD-10-PCS; principal; 2018-09-02)
PROC: 047L3DZ Dilation of Left Femoral Artery with Intraluminal Device, Percutaneous Approach (ICD-10-PCS; 2018-09-02)
DX: E11.51 Type 2 diabetes mellitus with diabetic peripheral angiopathy without gangrene (principal); I70.222 Atherosclerosis of native arteries of extremities with rest pain, left leg; I70.92 Chronic total occlusion of artery of the extremities; G47.33 Obstructive sleep apnea (adult) (pediatric); I10 Essential (primary) hypertension; E78.2 Mixed hyperlipidemia; E66.9 Obesity, unspecified; Z95.820 Peripheral vascular angioplasty status with implants and grafts; Z79.899 Other long term (current) drug therapy; Z79.82 Long term (current) use of aspirin; Z79.4 Long term (current) use of insulin; Z68.36 Body mass index [BMI] 36.0-36.9, adult
CPT/HCPCS: 36247; 36416; 37226; 85347; 99152; 99153; C1769; C1887; J1644; J2250; J2720; J3010; Q9967

== ENCOUNTER 2020-02-12 07:17 | Outpatient (CLI) | payer MEDICARE, BC, OTHER ==
[2020-02-12 14:52] LABS: ALT (SGPT) 20 U/L (8-55); AST (SGOT) 16 U/L (5-34); Alkaline Phosphatase 66 U/L (40-110); Anion Gap 15 mmol/L (10-20); BUN (Urea Nitrogen) 13 mg/dL (8.4-25.7); Bilirubin, Total 0.6 mg/dL (0.2-1.2); Calc. Creatinine Clearance 0 mL/min (70-130); Calcium 8.7 mg/dL (7.8-10.44); Carbon Dioxide 22 mmol/L (23-31); Cardiac Risk 3.5 (Less than 4.5); Chloride 104 mmol/L (98-107); Cholesterol 122 mg/dl (< 200 Desired); Estimated GFR-MDRD 84; Globulin 2.5 g/dL (2.4-3.5); Glucose 141 mg/dL (83-110); HDL Cholesterol 35 mg/dL (>60 Neg Risk); LDL Cholesterol, Calculated 62 mg/dL; Potassium 4.4 mmol/L (3.5-5.1); Protein, Total 6.5 g/dL (5.8-8.1); Sodium 137 mmol/L (136-145); Triglycerides 124 mg/dL (Less than 150)
[2020-02-12 15:14] LABS: Band 19 % (5-11); Eosinophils 1 % (0-10); Lymphocytes 15 % (21-51); MDiff Complete? YES; Mean Corpuscular HGB CONC 33.7 g/dL (32.0-36.0); Mean Corpuscular Hemoglobin 32.3 pg (27.0-31.0); Mean Corpuscular Volume 95.9 fL (78.0-98.0); Mean Platelet Volume 6.7 fL (7.4-10.4); Monocytes 13 % (0-10); Neutrophil 44 % (42-75); Platelet Count 312 thou/uL (130-400); Platelet Morphology Comment Appears Adequate; Polychromasia SLIGHT = 2-3 cells (100X) (0-2/hpf); RBC Distribution Width 12.3 % (11.5-14.5); Reactive Lymphocytes 8 % (0-10); Red Blood Cell (RBC) Count 4.96 mill/uL (4.70-6.10); White Blood Cell (WBC) Count 6.6 thou/uL (4.8-10.8)
[2020-02-13 14:55] LABS: SARS-CoV-2 MS2 Positive; SARS-CoV-2 N Gene Negative; SARS-CoV-2 S Gene Negative; SARS-CoV-2 by NAA Not Detected (NotDetected); SARS-CoV-2 orf1ab Negative
--- NOTE | 2020-02-14 13:09 | EKG ---
Test Reason : Blood Pressure : / mmHG Vent. Rate : 066 BPM Atrial Rate : 066 BPM P-R Int : 198 ms QRS Dur : 104 ms QT Int : 396 ms P-R-T Axes : 049 -06 041 degrees QTc Int : 415 ms Normal sinus rhythm Normal ECG No previous ECGs available Confirmed by ASHISH WILLIS MD ([id number] on 02/14/2020 1:08:54 PM Referred By: MICHELLE Confirmed By:ASHISH WILLIS MD
== END 2020-02-12 07:18 | disposition home or self-care (01) ==
LOC: LABBT 07:17
PROVIDERS: ATTEND Internal Medicine Cardiovascular Disease
DX: Z01.818 Encounter for other preprocedural examination (principal); R94.39 Abnormal result of other cardiovascular function study; R93.89 Abnormal findings on diagnostic imaging of other specified body structures; Z20.828 Contact with and (suspected) exposure to other viral communicable diseases
CPT/HCPCS: 80053; 80061; 85025; 93005; U0003; 87635; 93010

== ENCOUNTER 2020-02-17 05:58 | Observation (INO) | payer MEDICARE, BC ==
[2020-02-15 09:40] VITALS: BMI 38.2
[2020-02-17] MEDS ORDERED: Heparin 10,000 UNITS/ 10 ML VIAL ONE (06:31)
[2020-02-17] MEDS ORDERED: Lidocaine 1% (PF) 30 ML VIAL ONE (06:32)
[2020-02-17] MEDS ORDERED: Fentanyl 100 MCG/2 ML VIAL ONE (07:02)
[2020-02-17] MEDS ORDERED: Midazolam HCl 2 mg/2 ml Vial ONE (07:02)
[2020-02-17] MEDS ORDERED: Bivalirudin 250 MG VIAL ONE ×2 (07:37→08:29)
[2020-02-17] MEDS ORDERED: Aspirin Chewable 81 MG TAB ONE (07:37)
[2020-02-17] MEDS ORDERED: Atropine Sulfate 1 mg/10 ml Syringe ONE (07:45)
[2020-02-17] MEDS ORDERED: Ondansetron PF 4 MG/2 ML Vial ONE (07:45)
[2020-02-17] MEDS ORDERED: Nitroglycerin 100MG/250ML BOT 250 ML ONE (08:29)
[2020-02-17] MEDS ORDERED: traMADol HCl 50 MG TAB PO PRN (09:59)
[2020-02-17] MEDS ORDERED: Insulin Regular 300 UNITS/3 ML VIAL SC PRN ×2 (10:00)
[2020-02-17] MEDS ORDERED: Dextrose 5% in Water 1,000 ML IV PRN (10:00)
[2020-02-17] MEDS ORDERED: Dextrose 50% Abboject 50 ML SYRINGE IVP PRN (10:00)
[2020-02-17] MEDS ORDERED: Sodium Chloride 0.9% 1,000 ML IV SCH (10:00)
[2020-02-17] MEDS ORDERED: Iopamidol 370 76% 50 ML VIAL FS ONE (11:42)
[2020-02-17] MEDS ORDERED: Iopamidol 370 76% 100 ML VIAL ONE (11:42)
--- NOTE | 2020-02-17 15:11 | EKG ---
Test Reason : POST SSTENT Blood Pressure : / mmHG Vent. Rate : 058 BPM Atrial Rate : 058 BPM P-R Int : 198 ms QRS Dur : 112 ms QT Int : 424 ms P-R-T Axes : 061 -23 018 degrees QTc Int : 416 ms Sinus bradycardia with Premature atrial complexes Otherwise normal ECG Confirmed by OLIVIA SHIPLEY ([id number]) on 02/17/2020 3:10:58 PM Referred By: MICHELLE Confirmed By:OLIVIA SHIPLEY
[2020-02-17] MEDS ORDERED: Atorvastatin Calcium 40 MG TAB PO SCH (21:00)
[2020-02-17] MEDS: Gabapentin 300 MG CAP PO SCH (21:18)
[2020-02-17] MEDS: Fish Oil 1,000 MG CAP PO SCH (21:18)
[2020-02-17] MEDS: Insulin Glargine 40 UNITS in Pre-Filled Syringe 1 EACH SC SCH (22:16)
[2020-02-18 05:36] LABS: ALT (SGPT) 17 U/L (8-55); AST (SGOT) 14 U/L (5-34); Albumin 3.4 g/dL (3.4-4.8); Alkaline Phosphatase 51 U/L (40-110); Anion Gap 12 mmol/L (10-20); BUN (Urea Nitrogen) 14 mg/dL (8.4-25.7); Bilirubin, Total 0.6 mg/dL (0.2-1.2); Calc. Creatinine Clearance 139 mL/min (70-130); Calcium 8.8 mg/dL (7.8-10.44); Carbon Dioxide 26 mmol/L (23-31); Chloride 105 mmol/L (98-107); Estimated GFR-MDRD 82; Globulin 2.5 g/dL (2.4-3.5); Glucose 116 mg/dL (83-110); Potassium 4.1 mmol/L (3.5-5.1); Protein, Total 5.9 g/dL (5.8-8.1); Sodium 139 mmol/L (136-145)
[2020-02-18 05:52] LABS: Band 6 % (5-11); Eosinophils 1 % (0-10); Hemoglobin 14.6 g/dL (14.0-18.0); Lymphocytes 29 % (21-51); MDiff Complete? YES; Mean Corpuscular HGB CONC 34.2 g/dL (32.0-36.0); Mean Corpuscular Hemoglobin 32.7 pg (27.0-31.0); Mean Corpuscular Volume 95.7 fL (78.0-98.0); Mean Platelet Volume 6.5 fL (7.4-10.4); Monocytes 8 % (0-10); Neutrophil 56 % (42-75); Platelet Count 289 thou/uL (130-400); RBC Distribution Width 12.4 % (11.5-14.5); Red Blood Cell (RBC) Count 4.47 mill/uL (4.70-6.10)
[2020-02-18 07:33] VITALS: TEMP 98
[2020-02-18] MEDS: Fish Oil 1,000 MG CAP PO SCH (08:20)
[2020-02-18] MEDS: Gabapentin 300 MG CAP PO SCH (08:20)
[2020-02-18 08:21] VITALS: BP 97/61
[2020-02-18] MEDS ORDERED: Empagliflozin 25 MG TAB PO SCH (09:00)
[2020-02-18] MEDS ORDERED: Lisinopril 20 MG TAB PO SCH (09:00)
[2020-02-18] MEDS ORDERED: Aspirin 81 mg Enteric Coated Tablet PO SCH (09:00)
[2020-02-18] MEDS ORDERED: Clopidogrel Bisulfate 75 MG TAB PO SCH (09:00)
[2020-02-18] MEDS: Insulin Glargine 40 UNITS in Pre-Filled Syringe 1 EACH SC SCH (09:58)
--- NOTE | 2020-02-19 01:19 | DIS ---
DATE OF ADMISSION: 02/17/2020 DATE OF DISCHARGE: 02/18/2020 DISCHARGE DIAGNOSES: 1. Placement of drug-eluting stent in the distal RCA and mid RCA. 2. Two-vessel coronary artery disease (LAD and RCA). 3. Normal left ventricular function. 4. Atrial fibrillation on EKG in Dr. Lawrence's office. 5. Hypertension with blood pressure in the low 100s and 90s at times with lisinopril dose being reduced from 20 to 10 mg. 6. Hypercholesterolemia, now under good control with LDL of 62. 7. Type 2 diabetes. 8. Peripheral vascular disease, followed by Dr. Howard. 9. Obesity. 10. Former smoker. He stopped in 1988. 11. Obstructive sleep apnea. MEDICATIONS: 1. Fish oil 2000 mg b.i.d. 2. Isosorbide mononitrate ER 30 mg q.a.m. 3. Jardiance 25 mg daily. 4. Lantus insulin 40 units b.i.d. 5. Atorvastatin 40 daily. 6. Neurontin 300 mg b.i.d. 7. Plavix 75 mg daily. 8. Metoprolol 100 mg XL at bedtime. 9. Tramadol 50 mg p.r.n. 10. Lisinopril 10 mg daily. The day after discharge, he will resume Eliquis 5 mg b.i.d. and glyburide/metformin 5/500 two tablets b.i.d. DISCHARGE DISPOSITION: The patient will be seen in followup in 2 months. HOSPITAL COURSE: Mr. Jang had an EKG at Dr. Lawrence's, which revealed atrial fibrillation. He was placed on Eliquis and when he was seen in my office, was back in sinus rhythm. He is on aspirin and Plavix chronically due to peripheral vascular disease and stenting. The aspirin was discontinued. He was complaining of some shortness of breath as well as chest discomfort and nuclear stress test revealed apical ischemia. He underwent cardiac catheterization. There was normal left ventricular function with ejection fraction of 60% to 65%. There was a proximal 40% LAD lesion. There was a 70% ostial first diagonal lesion, 20% mid circumflex, 30% distal circumflex. The right coronary artery had a 30% and 70% mid stenosis and an 80% distal stenosis at the bifurcation. He underwent placement of drug-eluting stents - in the distal RCA, Synergy 2.5 x 16 and 2.5 x 8. In the mid RCA, Synergy 3.0 x 32 and 3.0 x 12. Both areas were reduced to 0%. He was observed overnight. He was somewhat hypotensive with pressures in the low 100s and 90s at times and his lisinopril will be held the day of discharge and then he will reduce the dose to 10 mg. Due to the ostial first diagonal stenosis, he was placed on low-dose nitrates. He also was given aspirin during the stent placement, but that will be discontinued long-term since Eliquis is being resumed. Job ID: [id number] MTDD
[2020-02-19] MEDS ORDERED: metFORMIN 500 MG TAB PO SCH (08:00)
[2020-02-19] MEDS ORDERED: glyBURIDE 5 MG TAB PO SCH (08:00)
[2020-02-19] MEDS ORDERED: Apixaban 5 MG TAB PO SCH (09:00)
[2020-02-19] MEDS ORDERED: Lisinopril 10 MG TAB PO SCH (09:00)
== END 2020-02-18 10:18 | disposition home or self-care (01) ==
LOC: CCL 05:58 → 2SW 09:29
PROVIDERS: ADMIT Internal Medicine Cardiovascular Disease; ATTEND Internal Medicine Cardiovascular Disease
PROC: 027035Z Dilation of Coronary Artery, One Artery with Two Drug-eluting Intraluminal Devices, Percutaneous Approach (ICD-10-PCS; principal; 2020-02-17)
PROC: 4A023N7 Measurement of Cardiac Sampling and Pressure, Left Heart, Percutaneous Approach (ICD-10-PCS; 2020-02-17)
PROC: B2111ZZ Fluoroscopy of Multiple Coronary Arteries using Low Osmolar Contrast (ICD-10-PCS; 2020-02-17)
DX: I25.10 Atherosclerotic heart disease of native coronary artery without angina pectoris (principal); I48.91 Unspecified atrial fibrillation; I10 Essential (primary) hypertension; E11.51 Type 2 diabetes mellitus with diabetic peripheral angiopathy without gangrene; E78.00 Pure hypercholesterolemia, unspecified; E78.2 Mixed hyperlipidemia; G47.33 Obstructive sleep apnea (adult) (pediatric); E66.9 Obesity, unspecified; Z68.38 Body mass index [BMI] 38.0-38.9, adult; Z87.891 Personal history of nicotine dependence; Z79.01 Long term (current) use of anticoagulants; Z79.02 Long term (current) use of antithrombotics/antiplatelets; Z79.4 Long term (current) use of insulin; Z79.899 Other long term (current) drug therapy
CPT/HCPCS: 76942; 80053; 82962; 85025; 85347 ×2; 93005; 93458; C1874; C9600; 36415; 36416; 92928; 99152; 99153; G0378; J0461; J0583; J1644; J1815; J2001; J2250; J2405; J3010; Q9967

== ENCOUNTER 2021-10-18 12:56 | Outpatient (CLI) | payer MEDICARE, BC | END 2021-10-18 12:57 | disposition home or self-care (01) | LOC: BICCT 12:56 | PROVIDERS: ATTEND Thoracic Surgery (Cardiothoracic Vascular Surgery) | DX: I70.213 Atherosclerosis of native arteries of extremities with intermittent claudication, bilateral legs (principal); I65.23 Occlusion and stenosis of bilateral carotid arteries; M47.812 Spondylosis without myelopathy or radiculopathy, cervical region; M48.02 Spinal stenosis, cervical region | CPT/HCPCS: 70498; 82565 ==

== ENCOUNTER 2021-11-03 11:22 | Outpatient (CLI) | payer MEDICARE, BC | END 2021-11-03 11:23 | disposition home or self-care (01) | LOC: LABBT 11:22 | PROVIDERS: ATTEND Thoracic Surgery (Cardiothoracic Vascular Surgery) | DX: Z01.810 Encounter for preprocedural cardiovascular examination (principal); I65.21 Occlusion and stenosis of right carotid artery | CPT/HCPCS: 93005; 93010 ==

== ENCOUNTER 2021-11-03 11:30 | Inpatient (IN) | payer MEDICARE, BC ==
[2021-11-03 13:03] LABS: #Eosinphils 0.2 10x3/uL (0.0-0.5); #Monocytes 0.9 10x3/uL (0.0-1.1); #Neutrophils 3.9 10x3/uL (1.5-8.4); %Basophils 0.5 % (0.0-2.0); %Eosinophils 2.7 % (0.0-6.0); %Lymphocytes 23.9 % (18.0-47.0); %Monocytes 13.4 % (0.0-10.0); %Neutrophils 58.9 % (40.0-75.0); Hemoglobin 15.2 g/dL (13.5-17.5); Mean Corpuscular HGB CONC 32.6 g/dL (32.0-36.0); Mean Corpuscular Volume 95.1 fl (81.2-95.1); Mean Platelet Volume 9.2 fl (7.4-10.4); Platelet Count 257 10x3/uL (150-450); RBC Distribution Width 13.8 % (11.5-14.5); White Blood Cell (WBC) Count 6.6 10x3/uL (3.5-10.5)
[2021-11-03 13:48] LABS: Anion Gap 15 mmol/L (10-20); BUN (Urea Nitrogen) 19 mg/dL (8.4-25.7); Calc. Creatinine Clearance 0 mL/min (70-130); Calcium 8.9 mg/dL (7.8-10.44); Carbon Dioxide 24 mmol/L (23-31); Chloride 105 mmol/L (98-107); Glucose 117 mg/dL (83-110); Potassium 5.1 mmol/L (3.5-5.1); Sodium 139 mmol/L (136-145)
[2021-11-08] MEDS ORDERED: Heparin 5,000 UNITS/ML VIAL ONE (06:25)
[2021-11-08] MEDS ORDERED: Bupivacaine PF 0.5% 30 ML VIAL ONE (06:25)
[2021-11-08] MEDS ORDERED: EPINEPHrine 1 MG/ML AMP ONE (06:25)
[2021-11-08] MEDS ORDERED: Protamine Sulfate 50 MG/5 ML VIAL ONE (06:25)
[2021-11-08] MEDS ORDERED: fentaNYL Citrate/PF 100 MCG/2 ML SYRINGE ONE (06:32)
[2021-11-08] MEDS ORDERED: Sodium Chloride 0.9% 100 ML ONE (07:22)
[2021-11-08] MEDS ORDERED: CEFAZOLIN 2 GM VIAL ONE (07:22)
[2021-11-08] MEDS ORDERED: SUGAMMADEX SODIUM 200 MG/2 ML VIAL ONE (07:30)
[2021-11-08] MEDS ORDERED: Ondansetron PF 4 MG/2 ML Vial ONE (07:39)
[2021-11-08] MEDS ORDERED: Rocuronium Bromide 10 MG/ML (10ML VIAL) ONE (07:39)
[2021-11-08] MEDS ORDERED: Ketorolac Tromethamine 30 MG/ML VIAL ONE (07:39)
[2021-11-08] MEDS ORDERED: Glycopyrrolate 0.2 MG/ML 5 ML SYRINGE ONE (07:39)
[2021-11-08] MEDS ORDERED: Lidocaine 1% PF 5 ML VIAL ONE (07:39)
[2021-11-08] MEDS ORDERED: PROPOFOL 200 MG/20 ML VIAL ONE (07:39)
[2021-11-08] MEDS ORDERED: Heparin 10,000 UNITS/ 10 ML VIAL ONE (08:20)
[2021-11-08] MEDS ORDERED: Promethazine HCl 25 MG/ML VIAL IVPB PRN (09:09)
[2021-11-08] MEDS ORDERED: Promethazine HCl 25 MG/ML VIAL IM PRN ×2 (09:09→09:16)
[2021-11-08] MEDS ORDERED: Ondansetron HCl/PF 4 MG/2 ML Vial IVP PRN (09:09)
[2021-11-08] MEDS ORDERED: HYDROcodone/Acetaminophen 5/325 mg Tablet PO PRN ×2 (09:16)
[2021-11-08] MEDS ORDERED: Acetaminophen 325 MG TAB PO PRN (09:16)
[2021-11-08] MEDS ORDERED: Dextrose 50% Abboject 50 ML SYRINGE SLOW IVP PRN (09:16)
[2021-11-08] MEDS ORDERED: Ondansetron PF 4 MG/2 ML Vial IVP PRN (09:16)
[2021-11-08] MEDS ORDERED: Morphine 2 MG/ML VIAL SLOW IVP PRN (09:16)
[2021-11-08] MEDS ORDERED: Dextrose 5% in Water 1,000 ML IV PRN (09:16)
[2021-11-08] MEDS ORDERED: Phenylephrine 40 MG in Sodium Chloride 0.9% 250 ML 250 ML IVPB PRN (09:16)
[2021-11-08] MEDS ORDERED: Morphine 4 MG/ML VIAL SLOW IVP PRN (09:16)
[2021-11-08] MEDS ORDERED: Sodium Chloride 0.9% 1,000 ML IV SCH (09:16)
[2021-11-08] MEDS ORDERED: niCARdipine 25 MG in Sodium Chloride 0.9% 250 ML 250 ML IVPB PRN (09:16)
[2021-11-08] MEDS ORDERED: Insulin Regular 300 UNITS/3 ML VIAL SC PRN (09:16)
[2021-11-08] MEDS ORDERED: Albumin 5% 250 ML ONE (09:24)
[2021-11-08] MEDS: Dronedarone HCl 400 MG TAB PO SCH (19:31)
[2021-11-08] MEDS: CEFAZOLIN 2 GM in Sodium Chloride 0.9% 100 ML IVPB SCH (19:31)
[2021-11-08] MEDS: metFORMIN 500 MG TAB PO SCH (20:39)
[2021-11-08] MEDS: Gabapentin 300 MG CAP PO SCH (20:40)
[2021-11-08] MEDS: glyBURIDE 5 MG TAB PO SCH (20:41)
[2021-11-08] MEDS ORDERED: Insulin Glargine 30 UNITS/0.3 ML VIAL SC SCH (21:00)
[2021-11-08] MEDS ORDERED: Atorvastatin Calcium 40 MG TAB PO SCH (21:00)
[2021-11-08 21:36] VITALS: BMI 40.6
[2021-11-08 22:05] LABS: Glucose 179 mg/dL (83-110)
[2021-11-09 01:06] LABS: Glucose 144 mg/dL (83-110)
[2021-11-09] MEDS: CEFAZOLIN 2 GM in Sodium Chloride 0.9% 100 ML IVPB SCH ×2 (01:36→07:37)
[2021-11-09 06:13] LABS: Glucose 82 mg/dL (83-110)
[2021-11-09] MEDS: Dronedarone HCl 400 MG TAB PO SCH (07:36)
[2021-11-09] MEDS: metFORMIN 500 MG TAB PO SCH (07:36)
[2021-11-09] MEDS: glyBURIDE 5 MG TAB PO SCH (07:36)
[2021-11-09] MEDS: Lisinopril 10 MG TAB PO SCH ×2 (07:37→07:54)
[2021-11-09] MEDS: Gabapentin 300 MG CAP PO SCH (07:37)
[2021-11-09 08:02] VITALS: TEMP 98.7
[2021-11-09] MEDS ORDERED: Aspirin Chewable 81 MG TAB PO SCH (09:00)
[2021-11-09] MEDS ORDERED: Clopidogrel Bisulfate 75 MG TAB PO SCH (09:00)
== END 2021-11-09 09:33 | disposition home or self-care (01) | DRG 38 ==
LOC: SURG A 11-08 05:57 → IMCU/EMU 11-08 18:20
PROVIDERS: ADMIT Thoracic Surgery (Cardiothoracic Vascular Surgery); ATTEND Thoracic Surgery (Cardiothoracic Vascular Surgery)
PROC: 03CK0ZZ Extirpation of Matter from Right Internal Carotid Artery, Open Approach (ICD-10-PCS; principal; 2021-11-08)
PROC: 03UK0KZ Supplement Right Internal Carotid Artery with Nonautologous Tissue Substitute, Open Approach (ICD-10-PCS; 2021-11-08)
DX: I65.21 Occlusion and stenosis of right carotid artery (principal); Z68.41 Body mass index [BMI] 40.0-44.9, adult; I70.213 Atherosclerosis of native arteries of extremities with intermittent claudication, bilateral legs; E11.9 Type 2 diabetes mellitus without complications; I10 Essential (primary) hypertension; G47.33 Obstructive sleep apnea (adult) (pediatric); I48.91 Unspecified atrial fibrillation; E66.3 Overweight; Z20.822 Contact with and (suspected) exposure to COVID-19; Z96.652 Presence of left artificial knee joint; Z98.890 Other specified postprocedural states; Z85.51 Personal history of malignant neoplasm of bladder; Z89.411 Acquired absence of right great toe; Z95.5 Presence of coronary angioplasty implant and graft; Z79.01 Long term (current) use of anticoagulants; Z79.4 Long term (current) use of insulin; Z79.02 Long term (current) use of antithrombotics/antiplatelets
CPT/HCPCS: 36415; 36416; 80048; 82947; 85025; 86850; 86900; 86901; C1768; C1776; J0171; J0690; J1642; J1644; J1815; J1885; J2405; J2704; J2720; J3490; P9045; S0020; U0003; U0005

== ENCOUNTER 2021-11-21 10:18 | Outpatient (CLI) | payer MEDICARE, BC | END 2021-11-21 10:19 | disposition home or self-care (01) | LOC: TBSIIMAG 10:18 | PROVIDERS: ATTEND Neurological Surgery | DX: M48.02 Spinal stenosis, cervical region (principal); M47.812 Spondylosis without myelopathy or radiculopathy, cervical region | CPT/HCPCS: 72141 ==

== ENCOUNTER 2023-01-04 22:46 | Inpatient (IN) | payer OTHER, MEDICARE, BC ==
[2023-01-04] MEDS ORDERED: Lidocaine 1% MPF 2 ML VIAL ONE (23:08)
[2023-01-04] MEDS ORDERED: Lidocaine 1% w/Epinephrine 1:100K 20 ML VIAL ONE (23:08)
[2023-01-04] MEDS ORDERED: CEFAZOLIN 2 GM VIAL ONE (23:48)
[2023-01-04] MEDS ORDERED: Boostrix 0.5 ML (Tdap) VIAL (>/=7 yrs of age) ONE (23:48)
[2023-01-04 23:51] LABS: #Eosinphils 0.3 thou/uL (0.0-0.7); #Monocytes 1.3 thou/uL (0.11-0.59); #Neutrophils 4.7 thou/uL (1.40-6.50); %Basophils 0.3 % (0.0-1.0); %Eosinophils 3.8 % (0.0-10.0); %Lymphocytes 20.1 % (21.0-51.0); %Monocytes 16.7 % (0.0-10.0); %Neutrophils 58.8 % (42.0-75.0); Hematocrit 34.9 % (42.0-52.0); Hemoglobin 10.9 g/dL (14.0-18.0); Mean Corpuscular HGB CONC 31.2 g/dL (32.0-36.0); Mean Corpuscular Hemoglobin 28.4 pg (27.0-31.0); Mean Corpuscular Volume 90.9 fl (78.0-98.0); Mean Platelet Volume 9.2 fL (7.4-10.4); Platelet Count 303 10x3/uL (130-400); RBC Distribution Width 14.9 % (11.5-14.5); Red Blood Cell (RBC) Count 3.84 mill/uL (4.70-6.10)
[2023-01-05 00:13] LABS: ALT (SGPT) 14 U/L (8-55); AST (SGOT) 18 U/L (5-34); Albumin 3.8 g/dL (3.4-4.8); Alkaline Phosphatase 53 U/L (40-110); Anion Gap 13 mmol/L (10-20); BUN (Urea Nitrogen) 17 mg/dL (8.4-25.7); Bilirubin, Total 0.3 mg/dL (0.2-1.2); Calc. Creatinine Clearance 0 mL/min (70-130); Calcium 9.1 mg/dL (7.8-10.44); Carbon Dioxide 23 mmol/L (23-31); Chloride 106 mmol/L (98-107); Estimated GFR 59; Globulin 2.9 g/dL (2.4-3.5); Glucose 294 mg/dL (83-110); Potassium 4.3 mmol/L (3.5-5.1); Protein, Total 6.7 g/dL (5.8-8.1); Sodium 138 mmol/L (136-145)
[2023-01-05 00:25] LABS: INR-International Normal Ratio 1.1; Prothrombin Time 15.1 sec (12.0-14.7)
[2023-01-05 00:26] LABS: PTT 29.6 sec (22.9-36.1)
[2023-01-05] MEDS ORDERED: Gentamicin 300 MG in Sodium Chloride 0.9% 100 ML IVPB SCH (01:00)
[2023-01-05] MEDS ORDERED: Sodium Chloride 0.9% 1,000 ML IV SCH ×2 (02:30→06:30)
[2023-01-05 03:38] VITALS: BMI 40.7
[2023-01-05] MEDS ORDERED: Morphine 2 MG/ML VIAL SLOW IVP PRN (06:23)
[2023-01-05] MEDS ORDERED: Ondansetron PF 4 MG/2 ML Vial IVP PRN (06:23)
[2023-01-05] MEDS ORDERED: Ipratropium/Albuterol 3 ML NEB NEB PRN (06:23)
[2023-01-05] MEDS ORDERED: traMADol HCl 50 MG TAB PO PRN (07:02)
[2023-01-05] MEDS ORDERED: CEFAZOLIN 2 GM in Sodium Chloride 0.9% 100 ML IVPB SCH (07:45)
[2023-01-05] MEDS ORDERED: cefTRIAXone\\ROCEPHIN 1 GM in Sodium Chloride 0.9% 100 ML IVPB SCH (09:00)
[2023-01-05] MEDS: Dronedarone HCl 400 MG TAB PO SCH ×2 (10:03→20:25)
[2023-01-05] MEDS: Famotidine/PF 20 mg/2ml Vial SLOW IVP SCH ×2 (10:08→19:50)
[2023-01-05] MEDS ORDERED: fentaNYL PF 100 MCG/2 ML SYRINGE ONE (16:43)
[2023-01-05] MEDS ORDERED: CEFAZOLIN 2 GM VIAL ONE (17:00)
[2023-01-05] MEDS ORDERED: Sodium Chloride 0.9% 100 ML ONE (17:00)
[2023-01-05] MEDS ORDERED: PROPOFOL 200 MG/20 ML VIAL ONE (17:13)
[2023-01-05] MEDS ORDERED: Ondansetron PF 4 MG/2 ML Vial ONE (17:13)
[2023-01-05] MEDS ORDERED: PHENYLEPHRINE-NS 100 MCG/ML 10 ML SYRINGE ONE (17:13)
[2023-01-05] MEDS ORDERED: Dexamethasone 20 MG/5 ML VIAL ONE (17:13)
[2023-01-05] MEDS ORDERED: fentaNYL 50 mcg/mL 1 mL Vial ONE (17:22)
[2023-01-05] MEDS: Senokot S 8.6-50 MG TAB PO SCH ×2 (19:50→20:25)
[2023-01-05] MEDS: Acetaminophen 500 MG TAB PO SCH (20:25)
[2023-01-05] MEDS: Polyethylene Glycol 3350 17 GM Packet PO SCH (20:25)
[2023-01-05] MEDS ORDERED: Atorvastatin Calcium 40 MG TAB PO SCH (21:00)
[2023-01-06] MEDS: Acetaminophen 500 MG TAB PO SCH ×3 (00:50→11:46)
[2023-01-06] MEDS: CEFAZOLIN 2 GM in Sodium Chloride 0.9% 100 ML IVPB SCH ×2 (00:57→08:35)
[2023-01-06 07:37] LABS: #Monocytes 1.2 thou/uL (0.11-0.59); #Neutrophils 7.8 thou/uL (1.40-6.50); %Basophils 0.1 % (0.0-1.0); %Monocytes 11.9 % (0.0-10.0); %Neutrophils 77.4 % (42.0-75.0); Hematocrit 36.5 % (42.0-52.0); Hemoglobin 11.5 g/dL (14.0-18.0); Mean Corpuscular HGB CONC 31.5 g/dL (32.0-36.0); Mean Corpuscular Hemoglobin 28.1 pg (27.0-31.0); Mean Corpuscular Volume 89.2 fl (78.0-98.0); Mean Platelet Volume 9.2 fL (7.4-10.4); Platelet Count 355 10x3/uL (130-400); RBC Distribution Width 14.6 % (11.5-14.5); Red Blood Cell (RBC) Count 4.09 mill/uL (4.70-6.10); White Blood Cell (WBC) Count 10.1 10x3/uL (4.8-10.8)
[2023-01-06 07:55] LABS: Anion Gap 13 mmol/L (10-20); BUN (Urea Nitrogen) 14 mg/dL (8.4-25.7); Calc. Creatinine Clearance 149 mL/min (70-130); Calcium 8.9 mg/dL (7.8-10.44); Carbon Dioxide 21 mmol/L (23-31); Chloride 107 mmol/L (98-107); Estimated GFR 91; Glucose 170 mg/dL (83-110); Potassium 4.4 mmol/L (3.5-5.1); Sodium 137 mmol/L (136-145)
[2023-01-06] MEDS: Famotidine/PF 20 mg/2ml Vial SLOW IVP SCH (08:35)
[2023-01-06] MEDS: Dronedarone HCl 400 MG TAB PO SCH (08:35)
[2023-01-06] MEDS: Polyethylene Glycol 3350 17 GM Packet PO SCH (08:36)
[2023-01-06] MEDS: Senokot S 8.6-50 MG TAB PO SCH (08:36)
[2023-01-06] MEDS ORDERED: Apixaban 5 MG TAB PO SCH (09:00)
[2023-01-06] MEDS ORDERED: Lisinopril 10 MG TAB PO SCH (09:00)
[2023-01-06] MEDS ORDERED: Clopidogrel Bisulfate 75 MG TAB PO SCH (09:00)
[2023-01-06] MEDS ORDERED: Gabapentin 400 MG CAP PO SCH (09:00)
[2023-01-06] MEDS ORDERED: Gabapentin 300 MG CAP PO SCH (09:00)
[2023-01-06 13:20] VITALS: BP 144/70; TEMP 98
== END 2023-01-06 14:21 | disposition home or self-care (01) | DRG 504 ==
LOC: ERS 22:46 → SJJU 01-05 01:15 → OBSVTOIN 01-05 06:23
PROVIDERS: ADMIT Student in an Organized Health Care Education/Training Program; ATTEND Student in an Organized Health Care Education/Training Program
PROC: 0QSR34Z Reposition Left Toe Phalanx with Internal Fixation Device, Percutaneous Approach (ICD-10-PCS; principal; 2023-01-06)
DX: S92.492B Other fracture of left great toe, initial encounter for open fracture (principal); Z68.41 Body mass index [BMI] 40.0-44.9, adult; I10 Essential (primary) hypertension; I48.91 Unspecified atrial fibrillation; E11.9 Type 2 diabetes mellitus without complications; I25.10 Atherosclerotic heart disease of native coronary artery without angina pectoris; I44.0 Atrioventricular block, first degree; I73.9 Peripheral vascular disease, unspecified; E66.01 Morbid (severe) obesity due to excess calories; W01.0XXA Fall on same level from slipping, tripping and stumbling without subsequent striking against object, initial encounter; E78.5 Hyperlipidemia, unspecified; Z96.652 Presence of left artificial knee joint; Z98.890 Other specified postprocedural states; Z89.421 Acquired absence of other right toe(s); Z79.82 Long term (current) use of aspirin; Z79.899 Other long term (current) drug therapy; Z87.891 Personal history of nicotine dependence; Z79.01 Long term (current) use of anticoagulants; Z79.02 Long term (current) use of antithrombotics/antiplatelets; Z85.51 Personal history of malignant neoplasm of bladder
CPT/HCPCS: 36415; 36416; 71045; 80048; 80053; 85025; 85610; 85730; 90471; 90715; 93005; 96365; 96367; 96372; 96376; C1894; G0378; J0696; J1100; J1580; J2405; J2704; J3010; J3490; J7050; S0028

== ENCOUNTER 2023-01-26 19:45 | Inpatient (IN) | payer OTHER, MEDICARE, BC ==
[2023-01-26] MEDS ORDERED: Cefepime 2 GM VIAL ONE (20:16)
[2023-01-26 20:20] LABS: Hematocrit 32.7 % (42.0-52.0); Hemoglobin 10.7 g/dL (14.0-18.0); Mean Corpuscular HGB CONC 32.7 g/dL (32.0-36.0); Mean Corpuscular Hemoglobin 27.9 pg (27.0-31.0); Mean Corpuscular Volume 85.4 fl (78.0-98.0); Mean Platelet Volume 9.2 fL (7.4-10.4); Platelet Count 331 10x3/uL (130-400); RBC Distribution Width 15.3 % (11.5-14.5); Red Blood Cell (RBC) Count 3.83 mill/uL (4.70-6.10); White Blood Cell (WBC) Count 25.8 10x3/uL (4.8-10.8)
[2023-01-26 20:22] LABS: Delete Auto Diff?? YES; Manual Diff?? YES
[2023-01-26] MEDS ORDERED: Acetaminophen 500 MG TAB ONE (20:30)
[2023-01-26 20:31] LABS: Actual Bicarbonate (HCO3v) 18.8 mEq/L (22-28); Base Excess -4.8 mEq/L (-2.0 to +3.0); Chloride (VBG) 102 mmol/L (98-106); Hematocrit-VBG 34 % (42.0-52.0); Hemoglobin (Hb) 11.7 g/dL (12.6-17.4); Potassium (VBG) 4.43 mmol/L (3.70-5.30); Sodium 133.5 mmol/L (133-146); pH (venous) 7.409 (7.32-7.43)
[2023-01-26 20:33] LABS: INR-International Normal Ratio 1.4; Prothrombin Time 17.6 sec (12.0-14.7)
[2023-01-26 20:34] LABS: PTT 36.3 sec (22.9-36.1)
[2023-01-26 20:43] LABS: ALT (SGPT) 12 U/L (8-55); AST (SGOT) 12 U/L (5-34); Albumin 3.9 g/dL (3.4-4.8); Alkaline Phosphatase 54 U/L (40-110); Anion Gap 16 mmol/L (10-20); BUN (Urea Nitrogen) 20 mg/dL (8.4-25.7); Bilirubin, Total 0.5 mg/dL (0.2-1.2); Calc. Creatinine Clearance 0 mL/min (70-130); Carbon Dioxide 20 mmol/L (23-31); Chloride 102 mmol/L (98-107); Estimated GFR 47; Globulin 2.6 g/dL (2.4-3.5); Glucose 156 mg/dL (83-110); Potassium 4.5 mmol/L (3.5-5.1); Protein, Total 6.5 g/dL (5.8-8.1); Sodium 133 mmol/L (136-145)
[2023-01-26 20:50] LABS: Band 15 % (5-11); Burr Cells SLIGHT = 2-5 cells HPF (0-1); CellaVision Operator ID lab.abc; Macrocytosis SLIGHT = 6-15 cells HPF (0-5); Monocytes 5 % (0-10); Neutrophil 80 % (42-75); Platelet Adequacy Comment Platelets Normal; Total Cell Count 99
[2023-01-26] MEDS ORDERED: VANCOMYCIN 2 GRAM/500 ML BAG 2 GM in Premix Bag 1 BAG IVPB SCH (21:00)
[2023-01-26] MEDS ORDERED: Ondansetron ODT 4 MG TAB PO PRN (22:11)
[2023-01-26] MEDS ORDERED: Calcium Carbonate 500 MG ChewTAB PO PRN (22:11)
[2023-01-26] MEDS ORDERED: Senokot S 8.6-50 MG TAB PO PRN (22:11)
[2023-01-26] MEDS ORDERED: Dextrose 50% Abboject 50 ML SYRINGE SLOW IVP PRN (22:15)
[2023-01-26] MEDS ORDERED: Glucagon 1 MG/ML KIT IM PRN (22:15)
[2023-01-26] MEDS ORDERED: Dextrose 5% in Water 1,000 ML IV PRN (22:15)
[2023-01-26] MEDS ORDERED: NOREPINEPHRINE 8 MG/250 ML-D5W 250 ML ONE (22:32)
[2023-01-26 22:38] LABS: Hemoglobin A1c 6.9 % (4.0-6.0)
[2023-01-27] MEDS ORDERED: NOREPINEPHRINE 8 MG/250 ML-D5W 250 ML IVPB SCH (00:30)
[2023-01-27] MEDS: Sodium Chloride 0.9% 1,000 ML IV SCH ×2 (01:29→17:01)
[2023-01-27 05:07] LABS: #Monocytes 1.2 thou/uL (0.11-0.59); #Neutrophils 16.3 thou/uL (1.40-6.50); %Basophils 0.2 % (0.0-1.0); %Lymphocytes 2.1 % (21.0-51.0); %Monocytes 6.6 % (0.0-10.0); %Neutrophils 90.5 % (42.0-75.0); Hematocrit 29.3 % (42.0-52.0); Hemoglobin 9.5 g/dL (14.0-18.0); Mean Corpuscular HGB CONC 32.4 g/dL (32.0-36.0); Mean Corpuscular Hemoglobin 28.2 pg (27.0-31.0); Mean Corpuscular Volume 86.9 fl (78.0-98.0); Mean Platelet Volume 9.2 fL (7.4-10.4); Platelet Count 269 10x3/uL (130-400); RBC Distribution Width 15.5 % (11.5-14.5); Red Blood Cell (RBC) Count 3.37 mill/uL (4.70-6.10)
[2023-01-27 05:28] LABS: Phosphorus 2.4 mg/dL (2.3-4.7)
[2023-01-27 05:30] LABS: Anion Gap 11 mmol/L (10-20); BUN (Urea Nitrogen) 18 mg/dL (8.4-25.7); Calc. Creatinine Clearance 104 mL/min (70-130); Calcium 8.4 mg/dL (7.8-10.44); Carbon Dioxide 20 mmol/L (23-31); Chloride 107 mmol/L (98-107); Estimated GFR 63; Glucose 120 mg/dL (83-110); Magnesium 1.6 mg/dL (1.6-2.6); Potassium 3.7 mmol/L (3.5-5.1); Sodium 134 mmol/L (136-145)
[2023-01-27] MEDS: Acetaminophen 325 MG TAB PO PRN ×2 (06:23→17:02)
[2023-01-27] MEDS ORDERED: Vancomycin 1.5 GRAM/300 ML BAG 1.5 GM in Premix Bag 1 BAG IVPB SCH (09:00)
[2023-01-27] MEDS ORDERED: Apixaban 5 MG TAB PO SCH (09:00)
[2023-01-27] MEDS: Insulin Glargine 30 UNITS/0.3 ML VIAL SC SCH ×2 (10:08→21:40)
[2023-01-27] MEDS: Empagliflozin 25 MG TAB PO SCH (10:09)
[2023-01-27] MEDS: Gabapentin 300 MG CAP PO SCH ×2 (10:25→22:19)
[2023-01-27] MEDS: Dronedarone HCl 400 MG TAB PO SCH ×2 (10:26→17:01)
[2023-01-27] MEDS: Cefepime 1 GM in Sodium Chloride 0.9% 100 ML IVPB SCH ×2 (10:26→22:20)
[2023-01-27] MEDS: Famotidine 20 MG TAB PO SCH (10:27)
[2023-01-27] MEDS ORDERED: metFORMIN 500 MG TAB PO SCH (17:00)
[2023-01-27] MEDS: HumaLOG 300 UNITS/3 ML VIAL SC PRN (17:00)
[2023-01-27] MEDS: glyBURIDE 5 MG TAB PO SCH (17:01)
[2023-01-27] MEDS ORDERED: VANCOMYCIN 2 GRAM/500 ML BAG 2 GM in Premix Bag 1 BAG IVPB SCH (21:00)
[2023-01-27] MEDS: Atorvastatin Calcium 40 MG TAB PO SCH (22:19)
[2023-01-28 05:19] LABS: #Neutrophils 6.1 thou/uL (1.40-6.50); %Basophils 0.1 % (0.0-1.0); %Eosinophils 0.1 % (0.0-10.0); %Lymphocytes 12.2 % (21.0-51.0); %Monocytes 12.2 % (0.0-10.0); Hematocrit 29.3 % (42.0-52.0); Hemoglobin 9.3 g/dL (14.0-18.0); Mean Corpuscular HGB CONC 31.7 g/dL (32.0-36.0); Mean Corpuscular Hemoglobin 27.8 pg (27.0-31.0); Mean Corpuscular Volume 87.7 fl (78.0-98.0); Mean Platelet Volume 9.2 fL (7.4-10.4); Platelet Count 247 10x3/uL (130-400); RBC Distribution Width 15.6 % (11.5-14.5); Red Blood Cell (RBC) Count 3.34 mill/uL (4.70-6.10); White Blood Cell (WBC) Count 8.2 10x3/uL (4.8-10.8)
[2023-01-28 05:41] LABS: Anion Gap 12 mmol/L (10-20); BUN (Urea Nitrogen) 13 mg/dL (8.4-25.7); Calc. Creatinine Clearance 135 mL/min (70-130); Carbon Dioxide 20 mmol/L (23-31); Chloride 109 mmol/L (98-107); Potassium 3.8 mmol/L (3.5-5.1); Sodium 137 mmol/L (136-145)
[2023-01-28 05:42] LABS: Calcium 8.5 mg/dL (7.8-10.44); Estimated GFR 86; Glucose 134 mg/dL (83-110)
[2023-01-28] MEDS: Famotidine 20 MG TAB PO SCH (08:04)
[2023-01-28] MEDS: Dronedarone HCl 400 MG TAB PO SCH ×2 (08:04→19:14)
[2023-01-28] MEDS: Cefepime 1 GM in Sodium Chloride 0.9% 100 ML IVPB SCH (08:06)
[2023-01-28] MEDS ORDERED: Cefepime 2 GM in Sodium Chloride 0.9% 100 ML IVPB SCH (09:00)
[2023-01-28] MEDS: Empagliflozin 25 MG TAB PO SCH (13:23)
[2023-01-28] MEDS: Gabapentin 300 MG CAP PO SCH ×2 (13:23→20:56)
[2023-01-28] MEDS: Insulin Glargine 30 UNITS/0.3 ML VIAL SC SCH ×2 (13:24→20:57)
[2023-01-28] MEDS ORDERED: Clindamycin/D5W 600 MG in Premix Bag 1 BAG IVPB SCH (14:15)
[2023-01-28] MEDS ORDERED: fentaNYL PF 100 MCG/2 ML SYRINGE ONE (15:47)
[2023-01-28] MEDS ORDERED: Metoclopramide HCl 10 MG/2 ML VIAL ONE (16:32)
[2023-01-28] MEDS ORDERED: PROPOFOL 200 MG/20 ML VIAL ONE (16:32)
[2023-01-28] MEDS ORDERED: PHENYLEPHRINE-NS 100 MCG/ML 10 ML SYRINGE ONE (16:32)
[2023-01-28] MEDS ORDERED: Ondansetron PF 4 MG/2 ML Vial ONE (16:32)
[2023-01-28] MEDS ORDERED: Lidocaine 1% PF 5 ML VIAL ONE (16:32)
[2023-01-28] MEDS ORDERED: ePHEDrine Sulfate 50 MG/10 ML VIAL ONE (16:32)
[2023-01-28] MEDS: Clindamycin 150 MG CAP PO SCH ×2 (19:14→20:57)
[2023-01-28] MEDS: glyBURIDE 5 MG TAB PO SCH (19:14)
[2023-01-28] MEDS: Penicillin G Potassium 4 MILL.UNITS in Sodium Chloride 0.9% 100 ML IVPB SCH ×2 (19:14→20:56)
[2023-01-28] MEDS: Sodium Chloride 0.9% 1,000 ML IV SCH ×2 (19:15→19:49)
[2023-01-28] MEDS: Atorvastatin Calcium 40 MG TAB PO SCH (20:56)
[2023-01-29] MEDS: Penicillin G Potassium 4 MILL.UNITS in Sodium Chloride 0.9% 100 ML IVPB SCH ×6 (00:02→20:38)
[2023-01-29] MEDS: Sodium Chloride 0.9% 1,000 ML IV SCH (05:00)
[2023-01-29 06:00] LABS: #Eosinphils 0.1 thou/uL (0.0-0.7); %Basophils 0.1 % (0.0-1.0); Mean Platelet Volume 9.5 fL (7.4-10.4)
[2023-01-29 06:29] LABS: Anion Gap 10 mmol/L (10-20); BUN (Urea Nitrogen) 13 mg/dL (8.4-25.7); Calc. Creatinine Clearance 152 mL/min (70-130); Calcium 8.2 mg/dL (7.8-10.44); Carbon Dioxide 21 mmol/L (23-31); Chloride 111 mmol/L (98-107); Estimated GFR 93; Glucose 137 mg/dL (83-110); Potassium 3.9 mmol/L (3.5-5.1); Sodium 138 mmol/L (136-145)
[2023-01-29 08:42] LABS: #Monocytes 1.3 thou/uL (0.11-0.59); #Neutrophils 4.6 thou/uL (1.40-6.50); %Eosinophils 1.4 % (0.0-10.0); %Lymphocytes 17.3 % (21.0-51.0); %Monocytes 17.7 % (0.0-10.0); %Neutrophils 63.2 % (42.0-75.0); Hematocrit 28.2 % (42.0-52.0); Hemoglobin 8.7 g/dL (14.0-18.0); Mean Corpuscular HGB CONC 30.9 g/dL (32.0-36.0); Mean Corpuscular Hemoglobin 27.6 pg (27.0-31.0); Mean Corpuscular Volume 89.5 fl (78.0-98.0); Platelet Count 256 10x3/uL (130-400); RBC Distribution Width 15.8 % (11.5-14.5); Red Blood Cell (RBC) Count 3.15 mill/uL (4.70-6.10); White Blood Cell (WBC) Count 7.3 10x3/uL (4.8-10.8)
[2023-01-29] MEDS: Gabapentin 300 MG CAP PO SCH ×2 (09:08→20:36)
[2023-01-29] MEDS: Lisinopril 10 MG TAB PO SCH (09:10)
[2023-01-29] MEDS: Famotidine 20 MG TAB PO SCH ×2 (09:11→20:36)
[2023-01-29] MEDS: Empagliflozin 25 MG TAB PO SCH (09:11)
[2023-01-29] MEDS: Dronedarone HCl 400 MG TAB PO SCH ×2 (09:11→17:43)
[2023-01-29] MEDS: Insulin Glargine 30 UNITS/0.3 ML VIAL SC SCH ×2 (09:11→20:36)
[2023-01-29] MEDS: Clindamycin 150 MG CAP PO SCH ×4 (09:13→20:37)
[2023-01-29] MEDS: HumaLOG 300 UNITS/3 ML VIAL SC PRN (12:42)
[2023-01-29] MEDS: glyBURIDE 5 MG TAB PO SCH (17:41)
[2023-01-29] MEDS: Atorvastatin Calcium 40 MG TAB PO SCH (20:36)
[2023-01-30] MEDS: Penicillin G Potassium 4 MILL.UNITS in Sodium Chloride 0.9% 100 ML IVPB SCH ×6 (01:25→21:19)
[2023-01-30 05:32] LABS: #Eosinphils 0.2 thou/uL (0.0-0.7); %Basophils 0.2 % (0.0-1.0); %Eosinophils 2.5 % (0.0-10.0); %Lymphocytes 19.6 % (21.0-51.0); %Monocytes 14.8 % (0.0-10.0); %Neutrophils 62.3 % (42.0-75.0); Hematocrit 26.7 % (42.0-52.0); Hemoglobin 8.3 g/dL (14.0-18.0); Mean Corpuscular HGB CONC 31.1 g/dL (32.0-36.0); Mean Corpuscular Hemoglobin 27.1 pg (27.0-31.0); Mean Corpuscular Volume 87.3 fl (78.0-98.0); Mean Platelet Volume 9.2 fL (7.4-10.4); Platelet Count 238 10x3/uL (130-400); RBC Distribution Width 15.6 % (11.5-14.5); Red Blood Cell (RBC) Count 3.06 mill/uL (4.70-6.10); White Blood Cell (WBC) Count 6.5 10x3/uL (4.8-10.8)
[2023-01-30 05:56] LABS: Anion Gap 11 mmol/L (10-20); BUN (Urea Nitrogen) 11 mg/dL (8.4-25.7); Calc. Creatinine Clearance 150 mL/min (70-130); Calcium 8.4 mg/dL (7.8-10.44); Carbon Dioxide 22 mmol/L (23-31); Chloride 109 mmol/L (98-107); Estimated GFR 92; Glucose 121 mg/dL (83-110); Sodium 138 mmol/L (136-145)
[2023-01-30] MEDS: Insulin Glargine 30 UNITS/0.3 ML VIAL SC SCH ×2 (09:59→21:21)
[2023-01-30] MEDS: Dronedarone HCl 400 MG TAB PO SCH ×2 (10:00→17:04)
[2023-01-30] MEDS: Aspirin Chewable 81 MG TAB PO SCH (10:00)
[2023-01-30] MEDS: Gabapentin 300 MG CAP PO SCH ×2 (10:01→21:20)
[2023-01-30] MEDS: Clindamycin 150 MG CAP PO SCH ×4 (10:01→21:18)
[2023-01-30] MEDS: Lisinopril 10 MG TAB PO SCH (10:02)
[2023-01-30] MEDS: Empagliflozin 25 MG TAB PO SCH (10:02)
[2023-01-30] MEDS: Famotidine 20 MG TAB PO SCH ×2 (10:03→21:21)
[2023-01-30] MEDS: Clopidogrel Bisulfate 75 MG TAB PO SCH (10:03)
[2023-01-30] MEDS: glyBURIDE 5 MG TAB PO SCH (17:04)
[2023-01-30] MEDS: Atorvastatin Calcium 40 MG TAB PO SCH (21:21)
[2023-01-31] MEDS: Penicillin G Potassium 4 MILL.UNITS in Sodium Chloride 0.9% 100 ML IVPB SCH ×6 (02:25→22:16)
[2023-01-31] MEDS: Dronedarone HCl 400 MG TAB PO SCH ×2 (08:55→16:55)
[2023-01-31] MEDS: Clindamycin 150 MG CAP PO SCH ×4 (08:55→22:03)
[2023-01-31] MEDS: Gabapentin 300 MG CAP PO SCH ×2 (08:56→22:01)
[2023-01-31] MEDS: Lisinopril 10 MG TAB PO SCH (08:56)
[2023-01-31] MEDS: Clopidogrel Bisulfate 75 MG TAB PO SCH (08:56)
[2023-01-31] MEDS: Empagliflozin 25 MG TAB PO SCH (08:56)
[2023-01-31] MEDS: Insulin Glargine 30 UNITS/0.3 ML VIAL SC SCH ×2 (08:56→22:03)
[2023-01-31] MEDS: Aspirin Chewable 81 MG TAB PO SCH (08:56)
[2023-01-31] MEDS: Famotidine 20 MG TAB PO SCH ×2 (08:57→22:03)
[2023-01-31] MEDS ORDERED: Dulaglutide [Trulicity] 0.75 MG/0.5 ML Pen.Inj SC SCH (09:00)
[2023-01-31 09:06] LABS: #Eosinphils 0.4 thou/uL (0.0-0.7); #Monocytes 0.9 thou/uL (0.11-0.59); #Neutrophils 4.2 thou/uL (1.40-6.50); %Basophils 0.1 % (0.0-1.0); %Eosinophils 6.1 % (0.0-10.0); %Lymphocytes 20.1 % (21.0-51.0); %Monocytes 12.7 % (0.0-10.0); %Neutrophils 60.1 % (42.0-75.0); Hematocrit 29.5 % (42.0-52.0); Hemoglobin 9.2 g/dL (14.0-18.0); Mean Corpuscular HGB CONC 31.2 g/dL (32.0-36.0); Mean Corpuscular Hemoglobin 26.9 pg (27.0-31.0); Mean Corpuscular Volume 86.3 fl (78.0-98.0); Mean Platelet Volume 9.1 fL (7.4-10.4); Platelet Count 299 10x3/uL (130-400); RBC Distribution Width 15.5 % (11.5-14.5); Red Blood Cell (RBC) Count 3.42 mill/uL (4.70-6.10)
[2023-01-31 09:28] LABS: Anion Gap 10 mmol/L (10-20); BUN (Urea Nitrogen) 8 mg/dL (8.4-25.7); Calc. Creatinine Clearance 151 mL/min (70-130); Carbon Dioxide 25 mmol/L (23-31); Chloride 106 mmol/L (98-107); Estimated GFR 92; Glucose 110 mg/dL (83-110); Sodium 137 mmol/L (136-145)
[2023-01-31] MEDS: glyBURIDE 5 MG TAB PO SCH (16:55)
[2023-01-31] MEDS: Atorvastatin Calcium 40 MG TAB PO SCH (22:03)
[2023-01-31] MEDS: Apixaban 5 MG TAB PO SCH (22:03)
[2023-01-31] MEDS: HumaLOG 300 UNITS/3 ML VIAL SC PRN (22:16)
[2023-02-01] MEDS: Penicillin G Potassium 4 MILL.UNITS in Sodium Chloride 0.9% 100 ML IVPB SCH ×6 (02:18→22:20)
[2023-02-01 05:59] LABS: #Eosinphils 0.6 thou/uL (0.0-0.7); #Monocytes 1.2 thou/uL (0.11-0.59); %Basophils 0.3 % (0.0-1.0); %Eosinophils 6.6 % (0.0-10.0); %Lymphocytes 20.2 % (21.0-51.0); %Monocytes 13.9 % (0.0-10.0); %Neutrophils 57.1 % (42.0-75.0); Hematocrit 28.8 % (42.0-52.0); Mean Corpuscular HGB CONC 31.3 g/dL (32.0-36.0); Mean Corpuscular Hemoglobin 27.2 pg (27.0-31.0); Mean Platelet Volume 8.9 fL (7.4-10.4); Platelet Count 321 10x3/uL (130-400); RBC Distribution Width 15.4 % (11.5-14.5); Red Blood Cell (RBC) Count 3.31 mill/uL (4.70-6.10); White Blood Cell (WBC) Count 8.8 10x3/uL (4.8-10.8)
[2023-02-01 06:36] LABS: Anion Gap 11 mmol/L (10-20); BUN (Urea Nitrogen) 11 mg/dL (8.4-25.7); Calc. Creatinine Clearance 151 mL/min (70-130); Calcium 8.8 mg/dL (7.8-10.44); Carbon Dioxide 25 mmol/L (23-31); Chloride 108 mmol/L (98-107); Estimated GFR 92; Glucose 89 mg/dL (83-110); Potassium 3.7 mmol/L (3.5-5.1); Sodium 140 mmol/L (136-145)
[2023-02-01] MEDS: Clindamycin 150 MG CAP PO SCH ×4 (08:48→22:02)
[2023-02-01] MEDS: Insulin Glargine 30 UNITS/0.3 ML VIAL SC SCH ×2 (08:49→22:03)
[2023-02-01] MEDS: Gabapentin 300 MG CAP PO SCH ×2 (08:49→21:59)
[2023-02-01] MEDS: Lisinopril 10 MG TAB PO SCH (08:49)
[2023-02-01] MEDS: Famotidine 20 MG TAB PO SCH ×2 (08:50→21:59)
[2023-02-01] MEDS: Aspirin Chewable 81 MG TAB PO SCH (08:50)
[2023-02-01] MEDS: Empagliflozin 25 MG TAB PO SCH (08:51)
[2023-02-01] MEDS: Clopidogrel Bisulfate 75 MG TAB PO SCH (08:51)
[2023-02-01] MEDS: Apixaban 5 MG TAB PO SCH ×2 (08:51→22:02)
[2023-02-01] MEDS: Dronedarone HCl 400 MG TAB PO SCH ×2 (08:59→17:45)
[2023-02-01 11:54] VITALS: BMI 38.9
[2023-02-01] MEDS: HumaLOG 300 UNITS/3 ML VIAL SC PRN (13:12)
[2023-02-01] MEDS: glyBURIDE 5 MG TAB PO SCH (17:44)
[2023-02-01] MEDS: Atorvastatin Calcium 40 MG TAB PO SCH (22:03)
[2023-02-02] MEDS: Penicillin G Potassium 4 MILL.UNITS in Sodium Chloride 0.9% 100 ML IVPB SCH ×3 (02:12→10:58)
[2023-02-02 07:10] LABS: #Eosinphils 0.5 thou/uL (0.0-0.7); #Monocytes 1.2 thou/uL (0.11-0.59); #Neutrophils 5.7 thou/uL (1.40-6.50); %Basophils 0.3 % (0.0-1.0); %Eosinophils 5.3 % (0.0-10.0); %Neutrophils 60.7 % (42.0-75.0); Hematocrit 29.3 % (42.0-52.0); Hemoglobin 9.2 g/dL (14.0-18.0); Mean Corpuscular HGB CONC 31.4 g/dL (32.0-36.0); Mean Corpuscular Hemoglobin 27.3 pg (27.0-31.0); Mean Corpuscular Volume 86.9 fl (78.0-98.0); Mean Platelet Volume 8.9 fL (7.4-10.4); Platelet Count 361 10x3/uL (130-400); RBC Distribution Width 15.6 % (11.5-14.5); Red Blood Cell (RBC) Count 3.37 mill/uL (4.70-6.10); White Blood Cell (WBC) Count 9.4 10x3/uL (4.8-10.8)
[2023-02-02 07:34] LABS: Anion Gap 12 mmol/L (10-20); BUN (Urea Nitrogen) 10 mg/dL (8.4-25.7); Calc. Creatinine Clearance 148 mL/min (70-130); Calcium 8.9 mg/dL (7.8-10.44); Carbon Dioxide 27 mmol/L (23-31); Chloride 106 mmol/L (98-107); Estimated GFR 92; Glucose 96 mg/dL (83-110); Potassium 4.4 mmol/L (3.5-5.1); Sodium 141 mmol/L (136-145)
[2023-02-02] MEDS: Gabapentin 300 MG CAP PO SCH (08:51)
[2023-02-02] MEDS: Aspirin Chewable 81 MG TAB PO SCH (08:53)
[2023-02-02] MEDS: Lisinopril 10 MG TAB PO SCH (08:53)
[2023-02-02] MEDS: Clopidogrel Bisulfate 75 MG TAB PO SCH (08:53)
[2023-02-02] MEDS: Empagliflozin 25 MG TAB PO SCH (08:53)
[2023-02-02] MEDS: Dronedarone HCl 400 MG TAB PO SCH (08:53)
[2023-02-02] MEDS: Famotidine 20 MG TAB PO SCH (08:53)
[2023-02-02] MEDS: Insulin Glargine 30 UNITS/0.3 ML VIAL SC SCH (08:54)
[2023-02-02] MEDS: Apixaban 5 MG TAB PO SCH (08:54)
[2023-02-02] MEDS ORDERED: Amoxicillin/Potassium Clav 875 MG TAB PO SCH ×2 (09:12→21:00)
[2023-02-02 12:08] VITALS: BP 120/78; TEMP 98.2
== END 2023-02-02 12:55 | disposition home or self-care (01) | DRG 853 ==
LOC: ERS 19:45 → CCU 22:24 → SURG A 01-27 13:48
PROVIDERS: ADMIT Student in an Organized Health Care Education/Training Program; ATTEND Internal Medicine
PROC: 02HV33Z Insertion of Infusion Device into Superior Vena Cava, Percutaneous Approach (ICD-10-PCS; principal; 2023-01-26)
PROC: 4A043R1 Measurement of Venous Saturation, Peripheral, Percutaneous Approach (ICD-10-PCS; 2023-01-26)
PROC: 3E04329 Introduction of Other Anti-infective into Central Vein, Percutaneous Approach (ICD-10-PCS; 2023-01-26)
PROC: 3E043XZ Introduction of Vasopressor into Central Vein, Percutaneous Approach (ICD-10-PCS; 2023-01-26)
PROC: 0Y6N0Z9 Detachment at Left Foot, Partial 1st Ray, Open Approach (ICD-10-PCS; 2023-01-28)
DX: A41.9 Sepsis, unspecified organism (principal); R65.21 Severe sepsis with septic shock; N17.9 Acute kidney failure, unspecified; E87.20 Acidosis, unspecified; T81.31XA Disruption of external operation (surgical) wound, not elsewhere classified, initial encounter; S92.412P Displaced fracture of proximal phalanx of left great toe, subsequent encounter for fracture with malunion; M86.8X7 Other osteomyelitis, ankle and foot; I10 Essential (primary) hypertension; E78.5 Hyperlipidemia, unspecified; Z96.652 Presence of left artificial knee joint; G47.33 Obstructive sleep apnea (adult) (pediatric); D64.9 Anemia, unspecified; I48.0 Paroxysmal atrial fibrillation; E11.42 Type 2 diabetes mellitus with diabetic polyneuropathy; E11.51 Type 2 diabetes mellitus with diabetic peripheral angiopathy without gangrene; I25.10 Atherosclerotic heart disease of native coronary artery without angina pectoris; E66.9 Obesity, unspecified; E11.69 Type 2 diabetes mellitus with other specified complication; Z98.890 Other specified postprocedural states; Z87.891 Personal history of nicotine dependence; Z79.899 Other long term (current) drug therapy; Z79.4 Long term (current) use of insulin; Z79.01 Long term (current) use of anticoagulants; Z82.49 Family history of ischemic heart disease and other diseases of the circulatory system; Z83.3 Family history of diabetes mellitus; Z68.38 Body mass index [BMI] 38.0-38.9, adult; Z79.02 Long term (current) use of antithrombotics/antiplatelets; Z95.5 Presence of coronary angioplasty implant and graft; L03.032 Cellulitis of left toe; W01.0XXD Fall on same level from slipping, tripping and stumbling without subsequent striking against object, subsequent encounter
CPT/HCPCS: 36415; 36416; 36556; 71045; 80048; 80053; 82533; 82805; 83036; 83605; 83735; 83880; 84100; 84145; 85025; 85610; 85730; 86140; 87040; 87070; 87077; 87149; 87186; 87205; 93005; 93306; 94760; 96365; 96366; 96367; J0692; J1815; J2405; J2540; J2704; J2765; J3370; J3490; J7050

== ENCOUNTER 2023-04-18 13:43 | Outpatient (CLI) | payer MEDICARE, BC | END 2023-04-18 13:44 | disposition home or self-care (01) | LOC: LABBT 13:43 | PROVIDERS: ATTEND Internal Medicine Cardiovascular Disease | DX: Z01.810 Encounter for preprocedural cardiovascular examination (principal) | CPT/HCPCS: 93005; 93010 ==

== ENCOUNTER 2023-04-30 08:27 | Outpatient (CLI) | payer MEDICARE, BC ==
[2023-04-30] MEDS ORDERED: Iopamidol 370 76% 100 ML VIAL ONE (11:14)
== END 2023-04-30 08:28 | disposition home or self-care (01) ==
LOC: CT 08:27
PROVIDERS: ATTEND Thoracic Surgery (Cardiothoracic Vascular Surgery)
DX: I73.9 Peripheral vascular disease, unspecified (principal); I70.1 Atherosclerosis of renal artery; D35.02 Benign neoplasm of left adrenal gland
CPT/HCPCS: 75635

== ENCOUNTER 2023-05-16 06:05 | Day surgery (SDC) | payer MEDICARE, BC ==
[2023-05-14 13:46] VITALS: BMI 40.4
[2023-05-16] MEDS ORDERED: Heparin 10,000 UNITS/ 10 ML VIAL ONE (06:14)
[2023-05-16] MEDS ORDERED: Iopamidol 370 76% 100 ML VIAL ONE (10:22)
== END 2023-05-16 14:35 | disposition home or self-care (01) ==
LOC: SDC 06:05
PROVIDERS: ATTEND Thoracic Surgery (Cardiothoracic Vascular Surgery)
PROC: 04HY32Z Insertion of Monitoring Device into Lower Artery, Percutaneous Approach (ICD-10-PCS; principal; 2023-05-16)
DX: T81.49XA Infection following a procedure, other surgical site, initial encounter (principal); I73.9 Peripheral vascular disease, unspecified; E11.51 Type 2 diabetes mellitus with diabetic peripheral angiopathy without gangrene; I10 Essential (primary) hypertension; E78.5 Hyperlipidemia, unspecified; G47.33 Obstructive sleep apnea (adult) (pediatric); E66.01 Morbid (severe) obesity due to excess calories; Z68.41 Body mass index [BMI] 40.0-44.9, adult; Z79.82 Long term (current) use of aspirin; Z79.84 Long term (current) use of oral hypoglycemic drugs; Z79.85 Long-term (current) use of injectable non-insulin antidiabetic drugs; Z79.4 Long term (current) use of insulin; Z79.899 Other long term (current) drug therapy; Z85.51 Personal history of malignant neoplasm of bladder; Z98.890 Other specified postprocedural states; Z96.652 Presence of left artificial knee joint; Z89.412 Acquired absence of left great toe; Z89.411 Acquired absence of right great toe; Y83.9 Surgical procedure, unspecified as the cause of abnormal reaction of the patient, or of later complication, without mention of misadventure at the time of the procedure
CPT/HCPCS: 36246; 75710; 82962; C1769 ×3; C1887; C1894; 36245; 36416; 75736; J1644

== ENCOUNTER 2023-07-30 12:53 | Outpatient (CLI) | payer MEDICARE ==
[~2023-07-30 12:53] MED LIST changes: -Iopamidol 370 76% 100 ML VIAL ONE; +Magnevist 469MG/ML 20 ML VIAL ONE
== END 2023-07-30 12:54 | disposition home or self-care (01) ==
LOC: BICMRI 12:53
PROVIDERS: ATTEND Nurse Practitioner Family
DX: E11.621 Type 2 diabetes mellitus with foot ulcer (principal); M86.8X7 Other osteomyelitis, ankle and foot
CPT/HCPCS: 82565; A9579

== ENCOUNTER 2023-11-07 13:37 | Emergency (ER) | payer MEDICARE | END 2023-11-07 15:49 | disposition home or self-care (01) | LOC: ERS 13:37 | DX: Z45.2 Encounter for adjustment and management of vascular access device (principal); E11.9 Type 2 diabetes mellitus without complications; I10 Essential (primary) hypertension; Z87.891 Personal history of nicotine dependence | CPT/HCPCS: 99282 ==

== ENCOUNTER 2023-11-17 20:40 | Emergency (ER) | payer MEDICARE ==
[2023-11-17 21:20] LABS: #Basophils Less than 0.03 10x3/uL (0.0-0.2); %Basophils 0.2 % (0.0-1.0); %Eosinophils 5.3 % (0.0-10.0); %Lymphocytes 21.2 % (21.0-51.0); %Monocytes 15.3 % (0.0-10.0); %Neutrophils 57.2 % (42.0-75.0); Hematocrit 31.2 % (42.0-52.0); Hemoglobin 9.7 g/dL (14.0-18.0); Mean Corpuscular HGB CONC 31.1 g/dL (32.0-36.0); Mean Corpuscular Hemoglobin 26.6 pg (27.0-31.0); Mean Corpuscular Volume 85.7 fL (78.0-98.0); Mean Platelet Volume 8.3 fL (7.4-10.4); Platelet Count 435 10x3/uL (130-400); RBC Distribution Width 17.3 % (11.5-14.5); Red Blood Cell (RBC) Count 3.64 mill/uL (4.70-6.10)
[2023-11-17 21:21] LABS: #Basophils 0.03 10x3/uL (0.0-0.2); %Basophils 0.3 % (0.0-1.0); %Eosinophils 5.6 % (0.0-10.0); %Lymphocytes 21.5 % (21.0-51.0); %Monocytes 15.2 % (0.0-10.0); %Neutrophils 56.5 % (42.0-75.0); Hematocrit 30.9 % (42.0-52.0); Hemoglobin 9.7 g/dL (14.0-18.0); Mean Corpuscular HGB CONC 31.4 g/dL (32.0-36.0); Mean Corpuscular Hemoglobin 26.7 pg (27.0-31.0); Mean Corpuscular Volume 85.1 fL (78.0-98.0); Mean Platelet Volume 8.3 fL (7.4-10.4); Platelet Count 448 10x3/uL (130-400); RBC Distribution Width 17.1 % (11.5-14.5); Red Blood Cell (RBC) Count 3.63 mill/uL (4.70-6.10)
[2023-11-17 21:34] LABS: INR-International Normal Ratio 1.2; PTT 31.3 sec (22.9-36.1); Prothrombin Time 15.5 sec (12.0-14.7)
[2023-11-17 21:41] LABS: ALT (SGPT) 19 U/L (8-55); AST (SGOT) 20 U/L (5-34); Albumin 3.3 g/dL (3.4-4.8); Alkaline Phosphatase 68 U/L (40-110); Anion Gap 15 mmol/L (10-20); BUN (Urea Nitrogen) 27 mg/dL (8.4-25.7); Bilirubin, Total 0.2 mg/dL (0.2-1.2); Calc. Creatinine Clearance 0 mL/min (70-130); Calcium 9.7 mg/dL (7.8-10.44); Carbon Dioxide 20 mmol/L (23-31); Chloride 109 mmol/L (98-107); Estimated GFR 77; Globulin 4.8 g/dL (2.4-3.5); Glucose 104 mg/dL (83-110); Potassium 5.1 mmol/L (3.5-5.1); Protein, Total 8.1 g/dL (5.8-8.1); Sodium 139 mmol/L (136-145)
[2023-11-17] MEDS ORDERED: Oxymetazoline HCl 0.05% (30 ML BOT) ONE (22:15)
== END 2023-11-17 22:50 | disposition home or self-care (01) ==
LOC: ERS 20:40
DX: R04.0 Epistaxis (principal); E11.9 Type 2 diabetes mellitus without complications; E78.5 Hyperlipidemia, unspecified; I10 Essential (primary) hypertension; Z79.01 Long term (current) use of anticoagulants; Z79.82 Long term (current) use of aspirin; Z79.899 Other long term (current) drug therapy; Z79.4 Long term (current) use of insulin
CPT/HCPCS: 36415; 80053; 85025; 85610; 85730; 99283

== ENCOUNTER 2024-02-04 17:54 | Inpatient (IN) | payer MEDICARE ==
[2024-02-04 20:48] LABS: INR-International Normal Ratio 1.8; Prothrombin Time 21.2 sec (12.0-14.7)
[2024-02-04 20:50] LABS: ALT (SGPT) 5 U/L (8-55); AST (SGOT) 16 U/L (5-34); Albumin 2.1 g/dL (3.4-4.8); Alkaline Phosphatase 118 U/L (40-110); Anion Gap 16 mmol/L (10-20); BUN (Urea Nitrogen) 21 mg/dL (8.4-25.7); Bilirubin, Total 0.3 mg/dL (0.2-1.2); Calc. Creatinine Clearance 0 mL/min (70-130); Calcium 8.7 mg/dL (7.8-10.44); Carbon Dioxide 23 mmol/L (23-31); Chloride 104 mmol/L (98-107); Estimated GFR 93; Globulin 4.8 g/dL (2.4-3.5); Glucose 79 mg/dL (83-110); Potassium 4.3 mmol/L (3.5-5.1); Protein, Total 6.9 g/dL (5.8-8.1); Sodium 139 mmol/L (136-145)
[2024-02-04 20:51] LABS: Iron 25 ug/dL (65-175); Iron Binding Capacity, Total 223 mcg/dL (261-462)
[2024-02-04 20:55] LABS: #Basophils Less than 0.03 10x3/uL (0.0-0.2); %Basophils 0.1 % (0.0-1.0); %Eosinophils 1.9 % (0.0-10.0); %Lymphocytes 19.3 % (21.0-51.0); %Neutrophils 59.9 % (42.0-75.0); Hematocrit 17.7 % (42.0-52.0); Hemoglobin 5.1 g/dL (14.0-18.0); Mean Corpuscular HGB CONC 28.8 g/dL (32.0-36.0); Mean Corpuscular Hemoglobin 25.6 pg (27.0-31.0); Mean Corpuscular Volume 88.9 fL (78.0-98.0); Mean Platelet Volume 8.2 fL (7.4-10.4); Platelet Count 413 10x3/uL (130-400); RBC Distribution Width 19.7 % (11.5-14.5); Red Blood Cell (RBC) Count 1.99 mill/uL (4.70-6.10)
[2024-02-04] MEDS ORDERED: Pantoprazole 40 MG VIAL ONE (21:12)
[2024-02-04] MEDS ORDERED: Pantoprazole 80 MG, Admixture Fee 1 EACH in Sodium Chloride 0.9% 100 ML IVPB SCH (21:30)
[2024-02-04] MEDS ORDERED: Acetaminophen 325 MG TAB PO PRN (21:37)
[2024-02-04] MEDS ORDERED: Ondansetron PF 4 MG/2 ML Vial IVP PRN (21:37)
[2024-02-04] MEDS ORDERED: Dextrose 5% in Water 1,000 ML IV PRN (21:50)
[2024-02-04] MEDS ORDERED: Dextrose 50% Abboject 50 ML SYRINGE SLOW IVP PRN (21:50)
[2024-02-04] MEDS ORDERED: Glucagon 1 MG/ML KIT IM PRN (21:50)
[2024-02-04 22:32] LABS: Iron 25 ug/dL (65-175); Iron Binding Capacity, Total 223 mcg/dL (261-462)
[2024-02-05 00:38] VITALS: BMI 35.7
[2024-02-05] MEDS: CEFAZOLIN 2 GM in Sodium Chloride 0.9% 100 ML IVPB SCH (01:08)
[2024-02-05 06:16] LABS: #Basophils Less than 0.03 10x3/uL (0.0-0.2); %Basophils 0.3 % (0.0-1.0); %Eosinophils 1.9 % (0.0-10.0); %Lymphocytes 18.2 % (21.0-51.0); %Monocytes 19.5 % (0.0-10.0); %Neutrophils 59.4 % (42.0-75.0); Hematocrit 19.2 % (42.0-52.0); Mean Corpuscular HGB CONC 31.3 g/dL (32.0-36.0); Mean Corpuscular Hemoglobin 26.5 pg (27.0-31.0); Mean Platelet Volume 8.6 fL (7.4-10.4); Platelet Count 446 10x3/uL (130-400); RBC Distribution Width 20.2 % (11.5-14.5); Red Blood Cell (RBC) Count 2.26 mill/uL (4.70-6.10)
[2024-02-05 06:18] LABS: #Basophils Less than 0.03 10x3/uL (0.0-0.2); %Basophils 0.2 % (0.0-1.0); %Eosinophils 1.8 % (0.0-10.0); %Lymphocytes 19.1 % (21.0-51.0); %Monocytes 18.5 % (0.0-10.0); %Neutrophils 59.9 % (42.0-75.0); Hematocrit 19.3 % (42.0-52.0); Hemoglobin 5.6 g/dL (14.0-18.0); Mean Corpuscular Hemoglobin 25.3 pg (27.0-31.0); Mean Corpuscular Volume 87.3 fL (78.0-98.0); Mean Platelet Volume 8.5 fL (7.4-10.4); Platelet Count 450 10x3/uL (130-400); RBC Distribution Width 19.9 % (11.5-14.5); Red Blood Cell (RBC) Count 2.21 mill/uL (4.70-6.10)
[2024-02-05 06:32] LABS: Anion Gap 15 mmol/L (10-20); BUN (Urea Nitrogen) 14 mg/dL (8.4-25.7); Calc. Creatinine Clearance 163 mL/min (70-130); Calcium 8.6 mg/dL (7.8-10.44); Carbon Dioxide 22 mmol/L (23-31); Chloride 105 mmol/L (98-107); Estimated GFR 96; Glucose 103 mg/dL (83-110); Potassium 4.1 mmol/L (3.5-5.1); Sodium 138 mmol/L (136-145)
[2024-02-05] MEDS ORDERED: traMADol HCl 50 MG TAB PO PRN (06:44)
[2024-02-05] MEDS ORDERED: Pantoprazole 40 MG VIAL IVP SCH (09:00)
[2024-02-05] MEDS ORDERED: CEFAZOLIN 1 GM VIAL IVPB SCH (09:00)
[2024-02-05] MEDS ORDERED: Sodium Ferric Gluconate 125 MG in Sodium Chloride 0.9% 100 ML IVPB SCH (09:00)
[2024-02-05] MEDS: Isosorbide Mononitrate 30 MG ER.TAB PO SCH (09:45)
[2024-02-05] MEDS: Dronedarone HCl 400 MG TAB PO SCH (09:45)
[2024-02-05] MEDS: CEFAZOLIN 1 GM in Sodium Chloride 0.9% 100 ML IVPB SCH (09:45)
[2024-02-05] MEDS: Pantoprazole DR 40 MG TAB PO SCH (09:45)
[2024-02-05] MEDS: Gabapentin 400 MG CAP PO SCH (09:45)
[2024-02-05] MEDS: Lisinopril 20 MG TAB PO SCH (09:45)
[2024-02-05 12:36] VITALS: BMI 35.7
[2024-02-05 12:59] LABS: Hematocrit 21.5 % (42.0-52.0); Hemoglobin 6.5 g/dL (14.0-18.0)
[2024-02-05 20:29] LABS: Hematocrit 25.2 % (42.0-52.0); Hemoglobin 7.7 g/dL (14.0-18.0)
[2024-02-05] MEDS: Atorvastatin Calcium 40 MG TAB PO SCH (20:57)
[2024-02-05] MEDS: Fluticasone Propionate Nasal Spray 16 gm Bottle NASAL SCH (23:39)
[2024-02-06 05:18] LABS: Hematocrit 24.1 % (42.0-52.0); Hemoglobin 7.3 g/dL (14.0-18.0); Mean Corpuscular HGB CONC 30.3 g/dL (32.0-36.0); Mean Corpuscular Hemoglobin 26.4 pg (27.0-31.0); Mean Platelet Volume 8.3 fL (7.4-10.4); Platelet Count 434 10x3/uL (130-400); RBC Distribution Width 18.8 % (11.5-14.5); Red Blood Cell (RBC) Count 2.77 mill/uL (4.70-6.10)
[2024-02-06 05:37] LABS: Anion Gap 14 mmol/L (10-20); BUN (Urea Nitrogen) 10 mg/dL (8.4-25.7); Calc. Creatinine Clearance 148 mL/min (70-130); Calcium 8.9 mg/dL (7.8-10.44); Carbon Dioxide 24 mmol/L (23-31); Chloride 101 mmol/L (98-107); Estimated GFR 93; Glucose 145 mg/dL (83-110); Potassium 4.3 mmol/L (3.5-5.1); Sodium 135 mmol/L (136-145)
[2024-02-06 06:48] LABS: Band 2 % (5-11); Elliptocytes SLIGHT = 2-5 cells HPF (0-1); Eosinophils 2 % (0-10); Hypochromia SLIGHT = 6-15 cells HPF (0-5); Lymphocytes 12 % (21-51); Macrocytosis SLIGHT = 6-15 cells HPF (0-5); Monocytes 17 % (0-10); Neutrophil 67 % (42-75); Platelet Adequacy Comment Platelets Normal; Polychromasia SLIGHT = 2-3 cells HPF (0-2); Target Cells SLIGHT = 2-5 cells HPF (0-1); Toxic Granulation SLIGHT
[2024-02-06] MEDS ORDERED: PROPOFOL 40 ML ONE (06:58)
[2024-02-06] MEDS ORDERED: PHENYLEPHRINE-NS 100 MCG/ML 10 ML SYRINGE ONE (08:28)
[2024-02-06] MEDS ORDERED: Lidocaine 2% PF 5 ML VIAL ONE (08:29)
[2024-02-06] MEDS: Ferrous Sulfate 325 MG TAB PO SCH (09:55)
[2024-02-06] MEDS ORDERED: traMADol HCl 50 MG TAB PO PRN (18:40)
[2024-02-06] MEDS: metFORMIN 500 MG TAB PO SCH (20:49)
[2024-02-06] MEDS: glyBURIDE 5 MG TAB PO SCH (20:49)
[2024-02-06] MEDS ORDERED: Gabapentin 400 MG CAP PO SCH (21:00)
[2024-02-07 04:23] LABS: Hematocrit 24.6 % (42.0-52.0); Hemoglobin 7.6 g/dL (14.0-18.0); Mean Corpuscular HGB CONC 30.9 g/dL (32.0-36.0); Mean Corpuscular Hemoglobin 26.5 pg (27.0-31.0); Mean Corpuscular Volume 85.7 fL (78.0-98.0); Mean Platelet Volume 8.3 fL (7.4-10.4); Platelet Count 398 10x3/uL (130-400); RBC Distribution Width 18.6 % (11.5-14.5); Red Blood Cell (RBC) Count 2.87 mill/uL (4.70-6.10)
[2024-02-07 06:25] LABS: Anisocytosis SLIGHT = 6-15 cells HPF (0-5); Band 1 % (5-11); Elliptocytes SLIGHT = 2-5 cells HPF (0-1); Hypochromia SLIGHT = 6-15 cells HPF (0-5); Lymphocytes 14 % (21-51); Macrocytosis SLIGHT = 6-15 cells HPF (0-5); Microcytosis SLIGHT = 6-15 cells HPF (0-5); Monocytes 17 % (0-10); Neutrophil 68 % (42-75); Platelet Adequacy Comment Platelets Normal; Poikilocytosis MARKED = >30 cells HPF (0-5); Polychromasia MODERATE = 3-4 cells HPF (0-2); Smudge Cells 2.9 %
[2024-02-07] MEDS ORDERED: Isosorbide Mononitrate 30 MG ER.TAB PO SCH (09:00)
[2024-02-07] MEDS: glyBURIDE 5 MG TAB PO SCH (09:42)
[2024-02-07] MEDS: metFORMIN 500 MG TAB PO SCH (09:43)
[2024-02-07 15:42] VITALS: BP 128/62; TEMP 98.6
== END 2024-02-07 16:59 | disposition home or self-care (01) | DRG 151 ==
LOC: ERS 17:54 → 2NO 21:37 → OBSVTOIN 02-05 13:15
PROVIDERS: ADMIT Internal Medicine; ATTEND Family Medicine
PROC: 30233N1 Transfusion of Nonautologous Red Blood Cells into Peripheral Vein, Percutaneous Approach (ICD-10-PCS; 2024-02-05)
PROC: 0DB68ZX Excision of Stomach, Via Natural or Artificial Opening Endoscopic, Diagnostic (ICD-10-PCS; principal; 2024-02-06)
DX: R04.0 Epistaxis (principal); M86.172 Other acute osteomyelitis, left ankle and foot; D62 Acute posthemorrhagic anemia; I25.10 Atherosclerotic heart disease of native coronary artery without angina pectoris; E78.5 Hyperlipidemia, unspecified; I10 Essential (primary) hypertension; E11.40 Type 2 diabetes mellitus with diabetic neuropathy, unspecified; E66.9 Obesity, unspecified; D50.9 Iron deficiency anemia, unspecified; E11.51 Type 2 diabetes mellitus with diabetic peripheral angiopathy without gangrene; K31.7 Polyp of stomach and duodenum; Z96.652 Presence of left artificial knee joint; Z82.49 Family history of ischemic heart disease and other diseases of the circulatory system; I48.0 Paroxysmal atrial fibrillation; Z83.3 Family history of diabetes mellitus; Z98.890 Other specified postprocedural states; Z79.899 Other long term (current) drug therapy; Z79.82 Long term (current) use of aspirin; Z79.01 Long term (current) use of anticoagulants; Z68.35 Body mass index [BMI] 35.0-35.9, adult
CPT/HCPCS: 36415; 36416; 36430; 80048; 80053; 82274; 82728; 83540; 83550; 85025; 85610; 85730; 86850; 86900; 86901; 93005; 96365; 96375; 97139; J0690; J2001; J2470; J2704; P9016

== ENCOUNTER 2024-02-18 12:56 | Outpatient (CLI) | payer MEDICARE | END 2024-02-18 12:57 | disposition home or self-care (01) | LOC: SCSMRI 12:56 | PROVIDERS: ATTEND Student in an Organized Health Care Education/Training Program | DX: M86.272 Subacute osteomyelitis, left ankle and foot (principal); R93.6 Abnormal findings on diagnostic imaging of limbs ==

== ENCOUNTER 2024-02-19 11:25 | Inpatient (IN) | payer MEDICARE ==
[2024-02-19] MEDS ORDERED: Piperacillin/Tazobactam 3.375 GM VIAL ONE (12:46)
[2024-02-19] MEDS ORDERED: Sodium Chloride 0.9% 100 ML ONE (12:46)
[2024-02-19 13:25] LABS: #Basophils Less than 0.03 10x3/uL (0.0-0.2); %Basophils 0.2 % (0.0-1.0); %Eosinophils 2.9 % (0.0-10.0); %Neutrophils 69.3 % (42.0-75.0); Hematocrit 25.4 % (42.0-52.0); Hemoglobin 7.5 g/dL (14.0-18.0); Mean Corpuscular HGB CONC 29.5 g/dL (32.0-36.0); Mean Corpuscular Hemoglobin 25.5 pg (27.0-31.0); Mean Corpuscular Volume 86.4 fL (78.0-98.0); Mean Platelet Volume 8.1 fL (7.4-10.4); Platelet Count 447 10x3/uL (130-400); RBC Distribution Width 17.3 % (11.5-14.5); Red Blood Cell (RBC) Count 2.94 mill/uL (4.70-6.10)
[2024-02-19 13:32] LABS: ALT (SGPT) 15 U/L (8-55); AST (SGOT) 17 U/L (5-34); Albumin 2.4 g/dL (3.4-4.8); Alkaline Phosphatase 110 U/L (40-110); Anion Gap 13 mmol/L (10-20); BUN (Urea Nitrogen) 14 mg/dL (8.4-25.7); Bilirubin, Total 0.3 mg/dL (0.2-1.2); Calc. Creatinine Clearance 0 mL/min (70-130); Calcium 9.1 mg/dL (7.8-10.44); Carbon Dioxide 24 mmol/L (23-31); Chloride 104 mmol/L (98-107); Estimated GFR 96; Globulin 5.2 g/dL (2.4-3.5); Glucose 115 mg/dL (83-110); Potassium 4.5 mmol/L (3.5-5.1); Protein, Total 7.6 g/dL (5.8-8.1); Sodium 136 mmol/L (136-145)
[2024-02-19] MEDS ORDERED: Ondansetron ODT 4 MG TAB PO PRN (13:59)
[2024-02-19 17:04] VITALS: BMI 36.9
[2024-02-19] MEDS: Vancomycin (BATCH) 2.5 GM in Premix 1 BAG IVPB SCH (17:37)
[2024-02-19] MEDS ORDERED: Dextrose 5% in Water 1,000 ML IV PRN (17:42)
[2024-02-19] MEDS ORDERED: Glucagon 1 MG/ML KIT IM PRN (17:42)
[2024-02-19] MEDS ORDERED: Dextrose 50% Abboject 50 ML SYRINGE SLOW IVP PRN (17:42)
[2024-02-19] MEDS: Atorvastatin Calcium 40 MG TAB PO SCH (20:08)
[2024-02-19] MEDS: Baclofen 10 MG TAB PO SCH (20:08)
[2024-02-19] MEDS: Gabapentin 300 MG CAP PO SCH (20:08)
[2024-02-19] MEDS: Piperacillin/Tazobactam 3.375 GM in Sodium Chloride 0.9% 100 ML IVPB SCH (20:09)
[2024-02-19] MEDS ORDERED: Vancomycin 1 GM in Sodium Chloride 0.9% 250 ML 250 ML IVPB SCH (21:00)
[2024-02-19] MEDS: Insulin Glargine 30 UNITS/0.3 ML VIAL SC SCH (21:24)
[2024-02-19] MEDS: Vancomycin (BATCH) 1.75 GM in Premix 1 BAG IVPB SCH (23:18)
[2024-02-20] MEDS: Piperacillin/Tazobactam 3.375 GM in Sodium Chloride 0.9% 100 ML IVPB SCH (00:54)
[2024-02-20] MEDS: traMADol HCl 50 MG TAB PO PRN (01:30)
[2024-02-20] MEDS: Acetaminophen 325 MG TAB PO PRN (01:31)
[2024-02-20 06:57] LABS: #Basophils Less than 0.03 10x3/uL (0.0-0.2); %Basophils 0.3 % (0.0-1.0); %Eosinophils 3.7 % (0.0-10.0); %Lymphocytes 20.2 % (21.0-51.0); %Monocytes 16.8 % (0.0-10.0); %Neutrophils 58.4 % (42.0-75.0); Hematocrit 24.1 % (42.0-52.0); Hemoglobin 7.3 g/dL (14.0-18.0); Mean Corpuscular HGB CONC 30.3 g/dL (32.0-36.0); Mean Corpuscular Hemoglobin 26.3 pg (27.0-31.0); Mean Corpuscular Volume 86.7 fL (78.0-98.0); Mean Platelet Volume 8.3 fL (7.4-10.4); Platelet Count 432 10x3/uL (130-400); RBC Distribution Width 17.7 % (11.5-14.5); Red Blood Cell (RBC) Count 2.78 mill/uL (4.70-6.10)
[2024-02-20 07:05] LABS: Vancomycin, Random 18.1 ug/mL (See Comment)
[2024-02-20 07:06] LABS: Anion Gap 11 mmol/L (10-20); BUN (Urea Nitrogen) 13 mg/dL (8.4-25.7); Calc. Creatinine Clearance 166 mL/min (70-130); Calcium 8.7 mg/dL (7.8-10.44); Carbon Dioxide 25 mmol/L (23-31); Chloride 106 mmol/L (98-107); Estimated GFR 97; Glucose 87 mg/dL (83-110); Sodium 138 mmol/L (136-145)
[2024-02-20] MEDS: Dapagliflozin Propanediol 10 MG TAB PO SCH (09:17)
[2024-02-20] MEDS: Dronedarone HCl 400 MG TAB PO SCH (09:17)
[2024-02-20] MEDS: Isosorbide Mononitrate 30 MG ER.TAB PO SCH (09:17)
[2024-02-20] MEDS: Lisinopril 20 MG TAB PO SCH (09:17)
[2024-02-20] MEDS: Pantoprazole DR 40 MG TAB PO SCH (09:17)
[2024-02-20] MEDS: Aspirin Chewable 81 MG TAB PO SCH (09:18)
[2024-02-20] MEDS: glyBURIDE 5 MG TAB PO SCH ×2 (09:18→16:59)
[2024-02-20] MEDS: metFORMIN 500 MG TAB PO SCH ×2 (09:18→16:59)
[2024-02-20] MEDS: Vancomycin (BATCH) 2 GM in Premix 1 BAG IVPB SCH (12:32)
[2024-02-20] MEDS: Insulin Lispro 100 UNIT/ML 10 ML VIAL SC PRN (12:32)
[2024-02-20 17:05] VITALS: BMI 36.9
[2024-02-21 05:06] LABS: #Basophils Less than 0.03 10x3/uL (0.0-0.2); %Basophils 0.1 % (0.0-1.0); %Eosinophils 3.8 % (0.0-10.0); %Lymphocytes 18.4 % (21.0-51.0); %Monocytes 18.7 % (0.0-10.0); %Neutrophils 58.6 % (42.0-75.0); Hematocrit 23.5 % (42.0-52.0); Mean Corpuscular HGB CONC 29.8 g/dL (32.0-36.0); Mean Corpuscular Hemoglobin 25.5 pg (27.0-31.0); Mean Corpuscular Volume 85.5 fL (78.0-98.0); Mean Platelet Volume 8.3 fL (7.4-10.4); Platelet Count 439 10x3/uL (130-400); RBC Distribution Width 17.4 % (11.5-14.5); Red Blood Cell (RBC) Count 2.75 mill/uL (4.70-6.10)
[2024-02-21 05:52] LABS: Anion Gap 10 mmol/L (10-20); BUN (Urea Nitrogen) 11 mg/dL (8.4-25.7); Calc. Creatinine Clearance 151 mL/min (70-130); Calcium 8.8 mg/dL (7.8-10.44); Carbon Dioxide 26 mmol/L (23-31); Chloride 105 mmol/L (98-107); Estimated GFR 94; Glucose 75 mg/dL (83-110); Potassium 3.8 mmol/L (3.5-5.1); Sodium 137 mmol/L (136-145)
[2024-02-21] MEDS ORDERED: Lidocaine 1% (PF) 30 ML VIAL ONE (07:01)
[2024-02-21] MEDS ORDERED: fentaNYL PF 100 MCG/2 ML SYRINGE ONE (07:02)
[2024-02-21] MEDS ORDERED: PROPOFOL 20 ML ONE (07:02)
[2024-02-21] MEDS ORDERED: Piperacillin/Tazobactam 3.375 GM VIAL ONE (07:24)
[2024-02-21] MEDS ORDERED: Sodium Chloride 0.9% 100 ML ONE (07:24)
[2024-02-21] MEDS ORDERED: Lidocaine 1% PF 5 ML VIAL ONE (08:12)
[2024-02-21] MEDS ORDERED: PHENYLEPHRINE-NS 100 MCG/ML 10 ML SYRINGE ONE ×2 (08:13→08:14)
[2024-02-21] MEDS ORDERED: Phenylephrine 40 MG/NS 250 ML 250 ML ONE (08:31)
[2024-02-21] MEDS ORDERED: Promethazine HCl 25 MG/ML VIAL IM PRN (08:41)
[2024-02-21] MEDS ORDERED: HYDROmorphone 2 MG/ML VIAL SLOW IVP PRN (08:41)
[2024-02-21] MEDS ORDERED: Ondansetron HCl/PF 4 MG/2 ML Vial IVP PRN (08:41)
[2024-02-21] MEDS ORDERED: EPINEPHrine 1 MG/ML VIAL ONE (10:00)
[2024-02-21] MEDS ORDERED: Bupivacaine 0.25% HCL 30 ML VIAL ONE (10:00)
[2024-02-21] MEDS ORDERED: Ondansetron PF 4 MG/2 ML Vial ONE (10:01)
[2024-02-21] MEDS ORDERED: fentaNYL 50 mcg/mL 1 mL Vial ONE (10:01)
[2024-02-21] MEDS ORDERED: HYDROmorphone 2 MG/ML VIAL ONE (10:09)
[2024-02-21 11:35] LABS: Hematocrit 25.8 % (42.0-52.0); Hemoglobin 7.6 g/dL (14.0-18.0)
[2024-02-21] MEDS: Ketorolac Tromethamine 30 MG (1 mL) VIAL IVP SCH (12:52)
[2024-02-21] MEDS: Cyclobenzaprine 10 MG TAB PO PRN (14:07)
[2024-02-21] MEDS: oxyCODONE 5 MG TAB PO PRN (14:27)
[2024-02-21] MEDS: Insulin Lispro 100 UNIT/ML 10 ML VIAL SC PRN (22:21)
[2024-02-22 06:01] LABS: Hematocrit 25.3 % (42.0-52.0); Hemoglobin 7.7 g/dL (14.0-18.0); Mean Corpuscular HGB CONC 30.4 g/dL (32.0-36.0); Mean Corpuscular Hemoglobin 26.2 pg (27.0-31.0); Mean Corpuscular Volume 86.1 fL (78.0-98.0); Mean Platelet Volume 8.3 fL (7.4-10.4); Platelet Count 362 10x3/uL (130-400); RBC Distribution Width 16.9 % (11.5-14.5); Red Blood Cell (RBC) Count 2.94 mill/uL (4.70-6.10)
[2024-02-22 06:23] LABS: Vancomycin, Random 38.6 ug/mL (See Comment)
[2024-02-22 06:25] LABS: Anion Gap 14 mmol/L (10-20); BUN (Urea Nitrogen) 17 mg/dL (8.4-25.7); Calc. Creatinine Clearance 136 mL/min (70-130); Calcium 8.2 mg/dL (7.8-10.44); Carbon Dioxide 24 mmol/L (23-31); Chloride 103 mmol/L (98-107); Estimated GFR 91; Glucose 143 mg/dL (83-110); Potassium 4.5 mmol/L (3.5-5.1); Sodium 136 mmol/L (136-145)
[2024-02-22 06:46] LABS: Band 2 % (5-11); Elliptocytes SLIGHT = 2-5 cells HPF (0-1); Eosinophils 3 % (0-10); Lymphocytes 11 % (21-51); Macrocytosis SLIGHT = 6-15 cells HPF (0-5); Monocytes 9 % (0-10); Neutrophil 75 % (42-75); Platelet Adequacy Comment Platelets Normal; Poikilocytosis MARKED = >30 cells HPF (0-5); Polychromasia SLIGHT = 2-3 cells HPF (0-2)
[2024-02-22] MEDS: FLU (Fluad Triv) TS24-25 (65UP)/MF59C/PF 45 MCG/0.5 ML Syringe IM ONE (10:35)
[2024-02-22] MEDS ORDERED: Vancomycin (BATCH) 2 GM in Premix 1 BAG IVPB SCH (23:59)
[2024-02-23 05:11] LABS: Hemoglobin 6.7 g/dL (14.0-18.0); Mean Corpuscular HGB CONC 30.5 g/dL (32.0-36.0); Mean Corpuscular Hemoglobin 27.2 pg (27.0-31.0); Mean Corpuscular Volume 89.4 fL (78.0-98.0); Mean Platelet Volume 8.2 fL (7.4-10.4); Platelet Count 304 10x3/uL (130-400); RBC Distribution Width 17.1 % (11.5-14.5); Red Blood Cell (RBC) Count 2.46 mill/uL (4.70-6.10)
[2024-02-23 05:55] LABS: Anion Gap 10 mmol/L (10-20); BUN (Urea Nitrogen) 24 mg/dL (8.4-25.7); Calc. Creatinine Clearance 142 mL/min (70-130); Calcium 8.3 mg/dL (7.8-10.44); Carbon Dioxide 25 mmol/L (23-31); Chloride 103 mmol/L (98-107); Estimated GFR 92; Glucose 83 mg/dL (83-110); Potassium 4.3 mmol/L (3.5-5.1); Sodium 134 mmol/L (136-145)
[2024-02-23 06:01] LABS: Anisocytosis SLIGHT = 6-15 cells HPF (0-5); Band 1 % (5-11); Eosinophils 5 % (0-10); Hypochromia SLIGHT = 6-15 cells HPF (0-5); Lymphocytes 15 % (21-51); Microcytosis SLIGHT = 6-15 cells HPF (0-5); Monocytes 8 % (0-10); Neutrophil 71 % (42-75); Platelet Adequacy Comment Platelets Normal; Polychromasia SLIGHT = 2-3 cells HPF (0-2)
[2024-02-24 08:51] LABS: Hematocrit 26.5 % (42.0-52.0); Hemoglobin 8.1 g/dL (14.0-18.0); Mean Corpuscular HGB CONC 30.6 g/dL (32.0-36.0); Mean Corpuscular Hemoglobin 26.4 pg (27.0-31.0); Mean Corpuscular Volume 86.3 fL (78.0-98.0); Mean Platelet Volume 8.4 fL (7.4-10.4); Platelet Count 355 10x3/uL (130-400); RBC Distribution Width 16.8 % (11.5-14.5); Red Blood Cell (RBC) Count 3.07 mill/uL (4.70-6.10)
[2024-02-24 09:02] LABS: Anion Gap 13 mmol/L (10-20); BUN (Urea Nitrogen) 27 mg/dL (8.4-25.7); Calc. Creatinine Clearance 138 mL/min (70-130); Calcium 8.6 mg/dL (7.8-10.44); Carbon Dioxide 26 mmol/L (23-31); Chloride 103 mmol/L (98-107); Estimated GFR 91; Glucose 83 mg/dL (83-110); Potassium 4.5 mmol/L (3.5-5.1); Sodium 137 mmol/L (136-145)
[2024-02-24 09:55] LABS: Eosinophils 14 % (0-10); Lymphocytes 22 % (21-51); Monocytes 13 % (0-10); Neutrophil 52 % (42-75); Platelet Adequacy Comment Platelets Normal; Polychromasia SLIGHT = 2-3 cells HPF (0-2)
[2024-02-26] MEDS: (Dulaglutide [Trulicity] 1.5 MG/0.5 ML Pen.Injctr) SC SCH (10:36)
[2024-02-27 07:51] VITALS: TEMP 97.5
[2024-02-27 08:59] VITALS: BP 150/80
== END 2024-02-27 14:17 | DRG 617 ==
LOC: ERS 11:25 → ERHOLD 13:29 → T4-B 16:16
PROVIDERS: ADMIT Internal Medicine; ATTEND Internal Medicine
PROC: 0Y6J0Z3 Detachment at Left Lower Leg, Low, Open Approach (ICD-10-PCS; principal; 2024-02-21)
PROC: 30233N1 Transfusion of Nonautologous Red Blood Cells into Peripheral Vein, Percutaneous Approach (ICD-10-PCS; 2024-02-21)
PROC: 3E033XZ Introduction of Vasopressor into Peripheral Vein, Percutaneous Approach (ICD-10-PCS; 2024-02-21)
DX: E11.69 Type 2 diabetes mellitus with other specified complication (principal); M86.9 Osteomyelitis, unspecified; E78.5 Hyperlipidemia, unspecified; I25.10 Atherosclerotic heart disease of native coronary artery without angina pectoris; I50.9 Heart failure, unspecified; I11.0 Hypertensive heart disease with heart failure; D64.9 Anemia, unspecified; I48.0 Paroxysmal atrial fibrillation; Z96.652 Presence of left artificial knee joint; Z98.890 Other specified postprocedural states; Z79.4 Long term (current) use of insulin; Z79.899 Other long term (current) drug therapy; Z79.82 Long term (current) use of aspirin
CPT/HCPCS: 36415; 36416; 36430; 80048; 80202; 82306; 83605; 83880; 84134; 85025; 86850; 86900; 86901; 87040; 88307; 90653; 96374; 96375; 97139; J0171; J0665; J1170; J1815; J1885; J2405; J2543; J2704; J3010; J3370; P9016